=== PATIENT | female | born 1940 | race Caucasian/White ===

== ENCOUNTER 2019-01-04 23:50 | Inpatient (IN) | payer MEDICARE, SELFPAY ==
[2019-01-05] VITALS (21 sets, daily range): BP systolic 117–153; BP diastolic 61–81; PULSE 64–93; RESP 16–27; TEMP 36.4–36.9; O2SAT 4–97; BMI 24.7
--- NOTE | 2019-01-05 00:55 | NURSING ---
Addendum entered by Stephenie Curran 01/05/19 01:04: Pt unsure of date of pneumococcal shot. Original Note: Pt states she take CoQ10, unsure of dose. Takes Vitamin D3 and Lecithin, unsure of doses. Unsure of last flu shot. States she thinks this was last year.
--- NOTE | 2019-01-05 02:45 | PCM.HP.STD ---
Problem List (1) Acute on chronic respiratory failure with hypoxemia Status: Chronic History of Present Illness Date of Admission: 01/05/19 Chief Complaint: shortness of breath The patient is a 78 year old F with a past medical history of COPD, hyperlipidemia, hypertension, tobacco abuse, chronic respiratory failure with hypoxemia who was transferred from [facility] Emergency department because of progressively worsening exertional dyspnea that started 3-4 days. She has shortness of breath at rest but her shortness of breath increases markedly with exertion. At home, patient noted that her oxygen saturation was in the 70s-80s even when she cranked her home oxygen from her baseline of 3 L/min to 6 L/min. At [facility] Emergency department on her home baseline 3 L/min nasal cannula her oxygen saturation was 82% with ambulation; and when her oxygen was increased to 6L per minute her oxygen saturation was less than 88% with ambulation. Her chest x-ray at outside hospital showed basilar atelectasis; emphysema and COPD. CTPA at the outside was not remarkable for PE. Patient had no fever; no change in cough and no wheezing. She was given Solu-Medrol 125 mg and breathing treatments at the outside hospital. Her white count and troponin was unremarkable. Her BNP was 109. Her EKG showed T wave inversion in leads III that was unchanged from previous. Her creatinine was 0.78. Coronary stent was placed in 2017. And she is on dual antiplatelet therapy with aspirin and Plavix. However 2 weeks ago she ran out of her Plavix. Reportedly she calls her special education administrator office and the nurse informed that there are times that Plavix is given for 1-1/2 years. She reports that no either information was provided so she assumed that she was done taking plavix. Patient is unsure whether she still needs to take her Plavix but as stated above she has been off Plavix. Past Medical History Past Medical History (Chronic Problems): Chronic Problems (Last Reviewed 01/05/19 @ 04:23 by Cosme Turner MD) Acute on chronic respiratory failure with hypoxemia (Chronic) Pneumonia (Chronic) Atherosclerotic heart disease of [place] coronary artery without angina pectoris (Chronic) Presence of coronary angioplasty implant and graft (Chronic) Femoral bruit (Chronic) Right PFO (patent foramen ovale) (Chronic) CAD (coronary artery disease) (Chronic) COPD (chronic obstructive pulmonary disease) (Chronic) Hypertension (Chronic) Hyperlipidemia (Chronic) Tobacco abuse disorder (Chronic) Chronic respiratory failure with hypoxia (Chronic) Medical History: Medical History (Last Reviewed 01/05/19 @ 06:16 by Cosme Turner MD) Dyspnea R06.00 Allergies isosorbide Adverse Reaction (Intermediate, Verified 01/21/18 16:53) Shortness of breath Home Medications: Ambulatory Orders Medication Instructions Recorded Lisinopril [Zestril] 10 mg PO DAILY 11/11/15 Simvastatin [Zocor] 20 mg PO QHS 11/11/15 Oxygen, Home [Home Oxygen] 2 lpm NASAL DAILY PRN 12/12/15 Tiotropium [place] [Spiriva 18 MCG] 1 puff INHALATION BID 12/12/15 Albuterol Aerosols [Ventolin 2.5 mg INHALATION TID PRN 07/14/17 Aerosols] Ascorbic Acid [Vitamin C] 1,000 mg PO BID 07/14/17 Aspirin [Aspirin, Baby] 81 mg PO QHS 07/14/17 Multivitamin [Multiple Vitamins] 1 ea PO DAILY 07/14/17 clopidogrel 75 mg tablet 75 mg PO DAILY #30 tab 09/10/17 Amlodipine Besylate 5 mg PO DAILY 01/05/19 Budesonide/Formoterol 160/4.5 2 puff INHALATION BID 01/05/19 [Symbicort 160/4.5 Mcg Inhaler (SP)] Cholecalciferol (VIT D3) [Vitamin 1,000 unit PO DAILY 01/05/19 D] Metoprolol Tartrate [Lopressor 12.5 mg PO BID 01/05/19 (beta megha)] Surgical History: Surgical History (Last Reviewed 01/05/19 @ 06:16 by Cosme Turner MD) Hx of appendectomy (Resolved) Z90.49 Surgical History: - - History of craniotomy status post intracranial hemorrhage in 1998, history of hand and wrist surgeries, recent appendectemy Psychiatric History: No pertinent psych hx MANAGEMENT ARCHITECT History: No pertinent MANAGEMENT ARCHITECT history Lives: Alone Smoking Status: Former smoker - *Family History Maternal Family History: Family History (Last Reviewed 01/05/19 @ 06:16 by Cosme Turner MD) Mother CAD (coronary artery disease) Father CAD (coronary artery disease) Sister CAD (coronary artery disease) History Items: Heart Disease Paternal Family History: Family History (Last Reviewed 01/05/19 @ 06:16 by Cosme Turner MD) Mother CAD (coronary artery disease) Father CAD (coronary artery disease) Sister CAD (coronary artery disease) History Items: Heart Disease - of [place] at age 58 Sibling Family History: Family History (Last Reviewed 01/05/19 @ 06:16 by Cosme Turner MD) Mother CAD (coronary artery disease) Father CAD (coronary artery disease) Sister CAD (coronary artery disease) History Items: Stroke Review of Systems Constitutional: Denies: Chills, Fever, Weight Change HEENT: Reports: Nasal Congestion - She attributes to oxygen use.. Denies: Head Aches, Sinus Congestion, Sinus Drainage Cardiovascular: Denies: Chest Pain, Palpitations Respiratory: Reports: Shortness of Breath. Denies: Cough, Sputum production Gastrointestinal: Denies: Abdominal Pain, Nausea, Vomiting Genitourinary: Denies: Dysuria Musculoskeletal: Denies: Joint Pain, Joint Tenderness Skin: Denies: Rash, Wounds Neurological: Denies: Numbness, Tingling, Focal weakness Psychiatric: Denies: Anxiety, Depression, Homicidal Ideations, Suicidal Ideations Hematologic/ Lymphatic: Denies: Easy Bruising, Easy Bleeding VTE Information - Inpt Only VTE Present on Admission: No VTE Mechan Device Prophylaxis: None VTE Pharm Prophylaxis ordered?: Yes - Physical Exam General: Alert, Oriented x3, Cooperative HEENT: Atraumatic, PERRLA, EOMI, Normocephalic Neck: Supple, No JVD, Negative Carotid Bruits Lungs: Diminished, Tachypneic Cardiovascular: Regular rate, No murmurs Abdomen: Bowel Sounds Present, Soft, Non Tender Extremities: No edema, Capillary Refill Less than 3 Seconds Skin: No rashes, No breakdown Musculoskeletal: No Tenderness to Palpation of Joints or Extremities Neurological: Neuro grossly intact Psych/Mental Status: Normal Affect, Appropriate Vital Signs Temp Pulse Resp BP Pulse Ox 98.1 F 83 23 H 127/70 H 94 01/05/19 01:26 01/05/19 01:26 01/05/19 01:26 01/05/19 01:26 01/05/19 01:26 Oxygen Flow Rate (L/min) 6 Oxygen Delivery Method Nasal Cannula Weight: 63.3 kg Body Mass Index (BMI) 24.7 Finger Stick Blood Glucose 186 Laboratory Tests Past 24 Hrs 01/05/19 01:50 Troponin I Pending Assessment/Plan All Active Problems (Last Reviewed 01/05/19 @ 04:23 by Cosme Turner MD) Hx of appendectomy (Resolved) Post PTCA (Resolved) Ventricular septal aneurysm (Ruled-out) Acute respiratory failure with hypoxemia (Acute) COPD exacerbation (Acute) Angina pectoris (Acute) C. difficile colitis (Resolved) SBO (small bowel obstruction) (Resolved) The patient is a 78 year old F with a past medical history of COPD, hyperlipidemia, hypertension, tobacco abuse, chronic respiratory failure with hypoxemia who was transferred from [facility] Emergency department because of progressively worsening exertional dyspnea and with hypoxemia above her baseline in the setting of being off Plavix for about 2 weeks consistent with acute on chronic hypoxemic respiratory failure. Acute on chronic hypoxemic respiratory failure Patient with oxygen saturation in 70s-80s even when she cranked her home oxygen from her baseline of 3 L/min to 6 L/min. At [facility] Emergency department on her home baseline 3 L/min nasal cannula her oxygen saturation was 82% with ambulation; and when her oxygen was increased to 6L per minute her oxygen saturation was less than 88% with ambulation. Notably patient denies wheezing; or cough We will get a comprehensive respiratory pathogen panel. We will get a dobutamine echo to assess for ischemia/infarct We will restart patient on Plavix while inpatient. Received telemetry 125 mg and breathing treatment at emergency department. We will continue patient on Solu-Medrol 40 mg daily. We will scheduled DuoNeb and as needed albuterol. Consider discussing with Dr. Reed if patient still needs Plavix if her dobutamine echo is unremarkable. CBC and BMP ordered Hypertension On presentation her blood pressure was within goal Metoprolol and lisinopril continued Amlodipine continued Trend blood pressure and adjust blood pressure medications. History of CAD Aspirin continued Resume Plavix as above Vitamin D deficiency Vitamin D continued DVT Prophylaxis Subcutaneous Lovenox ordered Code Visit OBSV E&M: 57488 Initial observation care L3
[2019-01-05 05:20] LABS: International Normalized Ratio 1.1; Prothrombin Time (Protime)PT. 13.6 SECONDS (11.7-14.9)
[2019-01-05 05:21] LABS: Absolute Lymphocyte Count 0.59 X10^3/ul (0.83-4.51); Absolute Neutrophil Count 4.8 X10^3/uL (2.0-7.7); Basophil# 0.01 X10^3/uL; Basophil% 0.2 % (0-1); Hemoglobin 9.8 g/dl (12.0-15.0); Lymphocyte # 0.59 X10^3/ul (4.0); Lymphocyte % 10.8 % (19-41); Mean Corp Hgb Conc 31.6 g/gl (32-36); Mean Corpuscular Volume 88.6 fL (81-99); Mean Platelet Vol. 9.5 fl (6.2-12.0); Monocyte# 0.06 X10^3/uL; Monocyte% 1.1 % (0-10); Neutrophil # 4.77 X10^3/uL (2.7-7.7); Neutrophil % 87.7 % (47-70); Platelet Count 246 K/mm3 (150-450); RBC Distribution Width CV 12.7 % (11.6-14.6); RBC Distribution Width SD 39.8 fl (35.1-43.9); White Blood Count 5.4 K/mm3 (4.4-11.0)
[2019-01-05 05:26] LABS: POSITIVE COUNT NO; POSITIVE MORPHOLOGY NO
[2019-01-05 05:37] LABS: Partial Thromboplast Time 28.5 Seconds (24.1-36.2)
[2019-01-05 05:54] LABS: Anion Gap 3 (5-15); BUN 12 mg/dL (7-18); BUN/Creat Ratio 16.6 RATIO (10-20); Calcium,Total 9.5 mg/dL (8.5-10.1); Chloride 106 mmol/L (98-107); Creatinine, Serum 0.72 mg/dL (0.55-1.02); EST Glomerular Filtration Rate 83 mL/min (>60); Est Glom Filt Rate - Afr Amer 100 mL/min (>60); Estimated Creatinine Clearance 38.35 ml/min; Glucose 181 mg/dL (74-106); Potassium 4.7 mmol/L (3.5-5.1); Sodium Level 138 mmol/L (136-145)
--- NOTE | 2019-01-05 05:55 | EKG12_ITS ---
Test Reason : Blood Pressure : / mmHG Vent. Rate : 068 BPM Atrial Rate : 068 BPM P-R Int : 162 ms QRS Dur : 082 ms QT Int : 400 ms P-R-T Axes : 000 -14 006 degrees QTc Int : 425 ms Sinus rhythm with Premature atrial complexes Septal infarct (cited on or before 19-JUL-2017) Inferior infarct , age undetermined Abnormal ECG Confirmed by MANJINDER ONEILL, RENEA ([id number]), clinical editor DAVID HATCH ([id number]) on 01/06/2019 9:46:10 AM Referred By: Cosme Turner Confirmed By:RENEA DUNBAR MD
[2019-01-05 06:00] LABS: Differential Indicated SCAN CRITERIA MET; POSITIVE DIFFERENTIAL YES
[2019-01-05 06:01] LABS: Differential Comment SCANNED
[2019-01-05] MEDS: Lisinopril 10 MG Tablet PO (06:22)
[2019-01-05] MEDS: Clopidogrel Bisulfate 75 MG Tablet PO (06:22)
[2019-01-05] MEDS: Aspirin 81 MG TAB.CHEW PO (06:22)
[2019-01-05] MEDS: 0.9% NaCl Peripheral Flush Adult/Peds IV (06:23)
[2019-01-05] MEDS: Ipratropium/Albuterol Sulfate 3 ML AMPUL.NEB INHALATION (07:20)
--- NOTE | 2019-01-05 07:52 | PCM.PN.BLA ---
Progress Note Patient seen and examined. She was admitted because of worsening shortness of breath and dry cough of 3-4 days duration. She denies any chest pain. She denies fever or chills. She does have a history of COPD and advanced emphysema, has been on home oxygen at 3.5 L. Her EKG revealed no acute ischemic changes. Troponin is negative. Chest x-ray that was done at the outside facility showed no acute findings, revealed signs of hyperinflation consistent with COPD and advanced emphysema. CTA chest showed no PE or dissection, revealed advanced emphysema. Today, patient is feeling better than yesterday. At this time, she is on 3 L of oxygen. Repeat CBC and BMP from today was remarkable for chronic anemia, otherwise normal. Troponin is negative, second troponin is pending. Stress echocardiogram ordered. Her symptoms likely due to acute exacerbation of COPD with acute on chronic hypoxic respiratory failure. She is on bronchodilators and IV steroids. Peripheral vascular negative. Plan: Increase IV site Medrol to 40 mg every 8 hours, continue other treatments, plan for stress echo today that was ordered by the admitting physician.
--- NOTE | 2019-01-05 07:55 | PN_ITS ---
Progress Note Patient seen and examined. She was admitted because of worsening shortness of breath and dry cough of 3-4 days duration. She denies any chest pain. She denies fever or chills. She does have a history of COPD and advanced emphysema, has been on home oxygen at 3.5 L. Her EKG revealed no acute ischemic changes. Troponin is negative. Chest x-ray that was done at the outside facility showed no acute findings, revealed signs of hyperinflation consistent with COPD and advanced emphysema. CTA chest showed no PE or dissection, revealed advanced emphysema. Today, patient is feeling better than yesterday. At this time, she is on 3 L of oxygen. Repeat CBC and BMP from today was remarkable for chronic anemia, otherwise normal. Troponin is negative, second troponin is pending. Stress echocardiogram ordered. Her symptoms likely due to acute exacerbation of COPD with acute on chronic hypoxic respiratory failure. She is on bronchodil ators and IV steroids. Peripheral vascular negative. Plan: Increase IV site Medrol to 40 mg every 8 hours, continue other treatments, plan for stress echo today that was ordered by the admitting physician.
--- NOTE | 2019-01-05 11:00 | STE_ITS ---
Reason For Study: Dyspnea/SOB Stress Results Protocol: Dobutamine Stress Echo Maximum Predicted HR: 142 bpm Target HR: 121 bpm % Maximum Predicted HR: 89 % DurationHeart Rate Stage (mm:ss) (bpm) BP Comment Baseline 79 138/75No Chest Pain; Home O2 at 3L NC DSE 10 MCG 3:11 77 105/44No Chest Pain DSE 20 MCG 3:00 109 103/49No Chest Pain DSE 30 MCG 2:40 126 107/48No Chest Pain Recovery 97 114/63No Chest Pain Stress Duration: 8:51 mm:ss Maximum Stress HR: 126 bpm METS: 1 Baseline Echocardiogram Findings The estimated ejection fraction is 65 %. Stress Echo Wall motion Data Resting WM Intermediate WM Stress WM Resting Wall Motion Wall Motion Stress No regional wall motion No regional wall motion abnormalities noted. abnormalities noted. EKG Data Normal intervals are noted. The patient was titrated from 10 mcg to a maximun of 30 mcg of dobutamine during the stress. The maximum heart rate attained was 126 beats per minute. This was 88% of maximum predicted heart rate. During dobutamine infusion, there were no ST or T wave changes noted to suggest ischemia. No clinical angina was noted. Interpretation Summary The estimated ejection fraction is 65 %. Normal, adequate, dobutamine echocardiogram. Negative for ischemia by EKG and echocardiographic criteria. No anginal symptoms noted. Appropriate blood pressure response to dobutamine. Rare PVC noted. Final LVEF is 75%. Test terminated due to the attainment of target heart rate. Ordering Physician: Cosme Turner Referring Physician: Sj Hwang Performed By: Corey Flores RCS
[2019-01-05] MEDS: Metoprolol Tartrate 25 MG Tablet 12.5 MG PO ×2 (11:58→21:03)
[2019-01-05] MEDS: Multivitamins,Therapeutic Tablet 1 TABLET PO (11:58)
[2019-01-05] MEDS: Ascorbic Acid 500 MG Tablet 1000 MG PO ×2 (11:59→21:04)
[2019-01-05] MEDS: amLODIPine 5 MG Tablet PO (11:59)
[2019-01-05] MEDS: Albuterol 2.5 MG/3 ML VIAL.NEB. INHALATION ×2 (13:18→19:08)
[2019-01-05] MEDS: Atorvastatin Calcium 10 MG Tablet PO ×2 (21:03)
[2019-01-06] VITALS (18 sets, daily range): BP systolic 126–144; BP diastolic 63–78; PULSE 64–100; RESP 14–28; TEMP 36.4–36.9; O2SAT 87–100
--- NOTE | 2019-01-06 01:44 | NURSING ---
CPS NOTIFIED OF PT'S REQUEST FOR BREATHING TX.
[2019-01-06] MEDS: Albuterol 2.5 MG/3 ML VIAL.NEB. INHALATION ×3 (01:47→15:10)
[2019-01-06] MEDS: 0.9% NaCl Peripheral Flush Adult/Peds IV ×2 (05:58→21:41)
--- NOTE | 2019-01-06 07:20 | RAD_ITS ---
STUDY: X-RAY CHEST REASON FOR EXAM: Female, 78 years old. Shortness of breath/dyspnea. TECHNIQUE: Single AP portable view of the chest. COMPARISON: Comparison is made with prior examination dated July 14, 2017. FINDINGS: EKG electrodes are seen. Hyperinflation. The lungs are clear. There is no demonstrated pleural abnormality. There is moderate cardiac enlargement. Normal mediastinum and lona. Normal visualized pulmonary arteries. There is atherosclerotic calcification of the aortic arch with tortuosity. Normal visualized thoracic spine. Normal visualized ribs, clavicles, and shoulders. Hiatal hernia. RAD/Chest 1 View (Portable) IMPRESSION: Cardiomegaly. Hiatal hernia. No acute abnormality is seen. Electronically Signed: Joseluis Blancas, at 10:13 EDT , Service support ,
[2019-01-06] MEDS: levoFLOXacin 500 MG Tablet PO (08:31)
[2019-01-06] MEDS: Metoprolol Tartrate 25 MG Tablet 12.5 MG PO ×2 (08:31→21:37)
[2019-01-06] MEDS: Enoxaparin 40 MG/0.4 ML Syringe SC (08:32)
[2019-01-06] MEDS: amLODIPine 5 MG Tablet PO (08:32)
[2019-01-06] MEDS: Clopidogrel Bisulfate 75 MG Tablet PO (08:33)
[2019-01-06] MEDS: Ascorbic Acid 500 MG Tablet 1000 MG PO ×2 (08:33→21:39)
[2019-01-06] MEDS: Lisinopril 10 MG Tablet PO (08:34)
[2019-01-06] MEDS: Multivitamins,Therapeutic Tablet 1 TABLET PO (08:40)
--- NOTE | 2019-01-06 11:22 | PN_ITS ---
Subjective: Chief complaint: Follow-up after admission for acute COPD exacerbation with acute on chronic hypoxic respiratory failure. Patient seen and examined. No acute events overnight. Her symptoms slightly improved but still requiring up to 4 L of oxygen. She denies any cough or sputum production today. She walked to the bathroom and her pulse ox went down to 79% and she was tachycardic. Her other vital signs are stable, pulse ox is 97% on 4 L. - Physical Exam General: Alert, Oriented x3, Cooperative, No apparent distress, - HEENT: Atraumatic, PERRLA, EOMI, Normocephalic Oral: Moist Mucosa, No Gingival or Mucosal Lesions/ Ulcerations Neck: Supple, No JVD, Negative Carotid Bruits, Trachea Midline, Thyroid Normal Size and Texture Lungs: No rales, Diminished, Short of Breath, Wheezes, - - Decreased sounds bilateral, bilateral faint wheezes. Cardiovascular: Regular rate, Regular Rhythm, Normal S1, Normal S2, PMI Normal Abdomen: Bowel Sounds Present, Soft, Non Tender, Non-Distended, No Hepato- splenomegaly Extremities: No clubbing, No cyanosis, No edema Skin: No rashes, No breakdown Lymphatic: No Cervical, Supraclavicular, or Inguinal Adenopathy Neurological: Cranial nerves II-XII grossly intact, Neuro grossly intact Psych/Mental Status: Normal Affect, Appropriate, Alert and oriented to time, place, person, mood and affect Vital Signs Temp Pulse Resp BP Pulse Ox 97.8 F 92 16 138/63 H 97 01/06/19 05:59 01/06/19 08:31 01/06/19 07:35 01/06/19 05:59 01/06/19 07:35 Oxygen Flow Rate (L/min) 4 Oxygen Delivery Method Nasal Cannula Weight: 139 lb 8.842 oz Body Mass Index (BMI) 24.7 Finger Stick Blood Glucose 186 Intake and Output for Last 24 Hours 01/04/19 01/05/19 01/06/19 23:59 23:59 23:59 Intake Total 1240 / 1240 240 / 240 Balance 1240 / 1240 240 / 240 Microbiology Past 72 Hours 01/05/19 03:10 Respiratory Panel (PCR) - Final Mucosa - Nasopharyngeal Clinical Impression(s) from Imaging Studies Chest X-Ray 01/06/19 07:20 IMPRESSION: Cardiomegaly. Hiatal hernia. No acute abnormality is seen. Electronically Signed: Joseluis Blancas, at 10:13 EDT , Service support , Medical Necessity - Tobacco Use Smoking Status: Former smoker Assessment/Plan This is a 78 years old female patient presented to the emergency room because of progressively worsening shortness of breath with hypoxia on pulse oximeter as well as dry cough and she was found to have acute COPD exacerbation complicated by acute on chronic hypoxic respiratory failure. #1 acute COPD exacerbation: She is on bronchodilators and IV steroids. She reported minimal improvement of her symptoms. According to nursing staff, patient walked to the bathroom this morning and she became more short of breath, pulse ox dropped down to 79% on 4 L and she was tachycardic. Repeat chest x-ray showed no new findings. Respiratory panel for viruses were negative. Plan: Restart DuoNeb, change albuterol as needed, start p.o. Levaquin, start Robitussin-AC as needed, encourage incentive spirometer, ambulate. #2 acute on chronic hypoxic respiratory failure: Secondary to COPD exacerbation. Patient has been on oxygen at home at 3.5 L. At this time, she is on 4 L. Plan to treat as above. #3 CAD status post PTCA: Stable, no acute issues. Cardiac enzymes are negative. EKG revealed no acute ischemic changes. Stress echocardiogram performed and was negative for ischemia by EKG and echocardiographic criteria, EF was 75%. She is on aspirin, statins, Plavix, metoprolol and lisinopril. #4 hypertension: Blood pressure stable, continue Norvasc, metoprolol and lisinopril. #5 hyperlipidemia: Continue statins. #6 chronic anemia: Hemoglobin stable, no indication for transfusion. No evidence of active bleeding. #7 DVT prophylaxis: Subcu Lovenox. This note was generated with [employer] dictation software. It may contain incorrect words, spelling, and punctuation that were not noted in checking the note before signing. Code Visit Inpatient E&M: 56076 Subs Hosp L2
--- NOTE | 2019-01-06 15:49 | CASEMGMT ---
RN HUGO BIOTECHNOLOGIST CM to room to meet with patient for initial transition planning/care coordination assessment. VIPUL ARIAS introduced self and role at [facility]. Pt voices understanding and consents to assessment at this time. Pt resting in bed in no distress at this time. Pt is A/O at this time and answers all questions appropriately. Care providers, pharmacy, and demographics verified/updated at this time. PCP: [facility] Specialists: denies Preferred Pharmacy: [facility] Insurance: [facility] Prescription Benefit: Yes Living Will/HPOA: has a LW but does not have HCPOA . Interested in more information but does not want to talk with SW at this time to complete paperwork. Provided information on advanced directives and given Social Service rac card with number to call if chooses in the future to utilize [facility] social work for advanced directive completion. Educated patient that, if patient so chooses, can come back to [facility] and meet with a SW as an outpatient to complete health care advanced directives. Patient expresses understanding. LNOK: Sister, Shanell, who lives in [place]. Living Arrangements: Lives alone in one-story home w/2 steps to enter. is independent with personal ADL's. Has a friend, Sarah, who helps her with yardwork and grocery shopping. Friend, Jenniffer, is also supportive. Transportation: Pt states drives self and states no transportation concerns at this time. Friend, Sarah, is able to drive her home on d/c. DME: has the following DME: has grab bar in the bathroom, nebulizer,and O2 @ home thru [employer]. has both concentrator and portable tanks. Pt states she wears O2 @ 3.5 L/M. Call placed to [employer]. They state pt's current order for O2 is for only 2 L/M via n/c @ HS and with exertion. Pt states no need for further DME at this time. HHC/SNF: Has been @ [facility] after surgery in the past. No hx of HHC and denies needs. Pt wishes to return home and states has no concerns with going home at time of discharge. CM to follow for home oxygen needs and any further discharge planning/needs. Pt voices no further concerns/needs at this time. Advised pt to ask for CM if any further questions/concerns/needs arise. Voices understanding. PLAN: Home. Follow for Increased home O2 needs. (Pt has O2 @ 2 L/M @ home @ HS and w/exertion thru [employer]). Pt is going to ask friend, Sarah, to bring in portable tank to have for discharge. Roc PRAJAPATIN RN CM
[2019-01-06] MEDS: Ipratropium/Albuterol Sulfate 3 ML AMPUL.NEB INHALATION ×2 (18:34→23:01)
[2019-01-06] MEDS: Aspirin 81 MG TAB.CHEW PO (21:37)
[2019-01-07] VITALS (7 sets, daily range): BP systolic 134–145; BP diastolic 66–78; PULSE 59–88; RESP 16–20; TEMP 36.6–36.7; O2SAT 94–97
[2019-01-07] MEDS: Ipratropium/Albuterol Sulfate 3 ML AMPUL.NEB INHALATION ×3 (02:44→10:34)
[2019-01-07] MEDS: levoFLOXacin 500 MG Tablet PO (06:58)
[2019-01-07] MEDS: 0.9% NaCl Peripheral Flush Adult/Peds IV ×2 (06:59→07:43)
[2019-01-07] MEDS: Multivitamins,Therapeutic Tablet 1 TABLET PO (09:08)
[2019-01-07] MEDS: amLODIPine 5 MG Tablet PO (09:09)
[2019-01-07] MEDS: Metoprolol Tartrate 25 MG Tablet 12.5 MG PO (09:09)
[2019-01-07] MEDS: Enoxaparin 40 MG/0.4 ML Syringe SC (09:09)
[2019-01-07] MEDS: Lisinopril 10 MG Tablet PO (09:10)
[2019-01-07] MEDS: Clopidogrel Bisulfate 75 MG Tablet PO (09:10)
[2019-01-07] MEDS: Ascorbic Acid 500 MG Tablet 1000 MG PO (09:10)
--- NOTE | 2019-01-07 12:10 | PCM.DC ---
You will use the following diet at home:: Cardiac Your food should be the consistency of: Regular Discharge Activity: Return to Normal Activity Weight Bearing Status: Weight bearing as tolerated Call your doctor if you observe: Fever of 101 or Higher, Shortness of breath, Dizziness, Fainting spells, Chest pain, Increased palpitations (irregular heartbeat), Uncontrolled pain Additional Instructions: You can go up to 5-6 L of oxygen with activity and take it down to 3.5-4 at rest. Allergies/Adverse Reactions: Allergies isosorbide Adverse Reaction (Intermediate, Verified 01/21/18 16:53) Shortness of breath Medications to take at Discharge Lisinopril [Zestril] 10 mg PO DAILY 11/11/15 Simvastatin [Zocor] 20 mg PO QHS 11/11/15 Oxygen, Home [Home Oxygen] 2 lpm NASAL DAILY PRN 12/12/15 Tiotropium [place] [Spiriva 18 MCG] 1 puff INHALATION BID 12/12/15 Albuterol Aerosols [Ventolin Aerosols] 2.5 mg INHALATION TID PRN 07/14/17 Ascorbic Acid [Vitamin C] 1,000 mg PO BID 07/14/17 Aspirin [Aspirin, Baby] 81 mg PO QHS 07/14/17 Multivitamin [Multiple Vitamins] 1 ea PO DAILY 07/14/17 clopidogrel 75 mg tablet 75 mg PO DAILY #30 tab 09/10/17 Amlodipine Besylate 5 mg PO DAILY 01/05/19 Budesonide/Formoterol 160/4.5 [Symbicort 160/4.5 Mcg Inhaler (SP)] 2 puff INHALATION BID 01/05/19 Cholecalciferol (VIT D3) [Vitamin D3] 1,000 unit PO DAILY 01/05/19 Metoprolol Tartrate [Lopressor (beta megha)] 12.5 mg PO BID 01/05/19 Prednisone 40 mg PO DAILY #30 tablet 01/07/19 levoFLOXacin tablet [Levaquin tablet] 500 mg PO DAILY@0600 #5 tablet 01/07/19 The following prescriptions were given: levoFLOXacin tablet [Levaquin tablet] 500 mg PO DAILY@0600 #5 tablet Prednisone 40 mg PO DAILY #30 tablet Primary Care Physician: [facility] Doctor,Out of [Primary Care Provider] - Please follow up with your Primary Care Physician in: 1 week. Test Results: Test results from this visit will be discussed in further detail at your follow-up appointment, if applicable.
--- NOTE | 2019-01-07 12:45 | CASEMGMT ---
Per [employer], pt's order for home oxygen is 2 liters at bedtime and with exertion. New testing faxed with new order for 3 liters at rest and 6 liters on exertion to [employer] at this time. Call to Is[facility] to update on all at this time, voices understanding. Paco MATTHEW CM
--- NOTE | 2019-01-07 15:04 | PCM.DC.SUM ---
Discharge Date and Diagnosis Date of Admission: 01/05/19 Date of Discharge: 01/07/19 - Primary Discharge Diagnosis #1 acute COPD exacerbation. #2 acute on chronic hypoxic respiratory failure. - Secondary Discharge Diagnosis Chronic Problems (Last Reviewed 01/05/19 @ 06:16 by Cosme Turner MD) Post PTCA (Chronic) Atherosclerotic heart disease of [place] coronary artery without angina pectoris (Chronic) Presence of coronary angioplasty implant and graft (Chronic) PFO (patent foramen ovale) (Chronic) CAD (coronary artery disease) (Chronic) COPD (chronic obstructive pulmonary disease) (Chronic) Hypertension (Chronic) Hyperlipidemia (Chronic) Tobacco abuse disorder (Chronic) Chronic respiratory failure with hypoxia (Chronic) Hospital Course and Treatment Imaging Results: Clinical Impression(s) from Imaging Studies Chest X-Ray 01/06/19 07:20 IMPRESSION: Cardiomegaly. Hiatal hernia. No acute abnormality is seen. Electronically Signed: Joseluis Russellnaveen, at 10:13 EDT , Service support , Operations: None Procedures: None Summary of Care Provided: Patient seen and examined on the day of discharge and appeared to be stable to be discharged home. She continued to improve slowly, has been able to ambulate and her pulse ox dropped to high 80s upon ambulation but came up to more than 92 by rest. Her other vital signs were stable. The patient is a 78 year old F admitted because of progressively worsening shortness of breath, dry cough and hypoxia on pulse oximeter at home as well as dry cough and she was found to have acute COPD exacerbation complicated by acute on chronic hypoxic respiratory failure. A chest x-ray was done twice on admission and 3 days later and showed no evidence of infiltrate or consolidation, pneumonia ruled out. Her EKG revealed no acute ischemic changes. Her cardiac enzymes were negative. She underwent stress echocardiogram that was negative for ischemia by EKG and echocardiographic criteria with ejection fraction of 75%. Patient was treated with IV steroids, bronchodilators and oral antibiotics. Initially, patient reported no improvement and she continued to drop her pulse ox upon ambulation which was down up to high 70s and she was tachycardic. With above-mentioned treatment, patient symptoms improved and she was able to ambulate without significant drop of her pulse oximeter and large tachycardia. Patient was on 3.5 L of oxygen at home and during this admission, she required up to 6 L with activity and ambulation but at rest, she has been on 3.5-4 L. Patient discharged home in a stable medical condition, discharged on tapering course of prednisone, discharged on Levaquin for 5 days, instructed to go up on oxygen up to 6 L with ambulation, recommended from with PCP in 1 week. - Physical Exam General: Alert, Oriented x3, Cooperative, No apparent distress HEENT: Atraumatic, PERRLA, EOMI, Normocephalic Oral: Moist Mucosa, No Gingival or Mucosal Lesions/ Ulcerations Neck: Supple, No JVD, Negative Carotid Bruits, Trachea Midline, Thyroid Normal Size and Texture Lungs: Clear to auscultation, No rhonchi, No wheeze, No rales, Diminished Cardiovascular: Regular rate, Regular Rhythm, Normal S1, Normal S2, PMI Normal Abdomen: Bowel Sounds Present, Soft, Non Tender, Non-Distended, No Hepato-splenomegaly Extremities: No clubbing, No cyanosis, No edema Skin: No rashes, No breakdown Lymphatic: No Cervical, Supraclavicular, or Inguinal Adenopathy Neurological: Cranial nerves II-XII grossly intact, Neuro grossly intact Psych/Mental Status: Normal Affect, Appropriate Vital Signs Temp Pulse Resp BP Pulse Ox 98.1 F 80 16 134/78 H 95 01/07/19 09:50 01/07/19 10:34 01/07/19 10:34 01/07/19 09:50 01/07/19 09:50 Oxygen Flow Rate (L/min) [ 6 AMBULATION with Oxygen] Oxygen Flow Rate (L/min) [ 3 AMBULATING on Room Air] Oxygen Flow Rate (L/min) [At 3 REST on Room Air] Oxygen Flow Rate (L/min) 3 Oxygen Delivery Method Nasal Cannula Weight: 139 lb 8.842 oz Body Mass Index (BMI) 24.7 Finger Stick Blood Glucose 186 Intake and Output for Last 24 Hours 01/05/19 01/06/19 01/07/19 23:59 23:59 23:59 Intake Total 1240 / 1240 960 / 960 840 / 840 Balance 1240 / 1240 960 / 960 840 / 840 Microbiology Past 72 Hours 01/05/19 03:10 Respiratory Panel (PCR) - Final Mucosa - Nasopharyngeal Discharge Activity: Return to Normal Activity Weight Bearing Status: Weight bearing as tolerated Call your doctor if you observe: Fever of 101 or Higher, Shortness of breath, Dizziness, Fainting spells, Chest pain, Increased palpitations (irregular heartbeat), Uncontrolled pain Home Medications: Medications to take at Discharge Lisinopril [Zestril] 10 mg PO DAILY 11/11/15 Simvastatin [Zocor] 20 mg PO QHS 11/11/15 Oxygen, Home [Home Oxygen] 2 lpm NASAL DAILY PRN 12/12/15 Tiotropium [place] [Spiriva 18 MCG] 1 puff INHALATION BID 12/12/15 Albuterol Aerosols [Ventolin Aerosols] 2.5 mg INHALATION TID PRN 07/14/17 Ascorbic Acid [Vitamin C] 1,000 mg PO BID 07/14/17 Aspirin [Aspirin, Baby] 81 mg PO QHS 07/14/17 Multivitamin [Multiple Vitamins] 1 ea PO DAILY 07/14/17 clopidogrel 75 mg tablet 75 mg PO DAILY #30 tab 09/10/17 Amlodipine Besylate 5 mg PO DAILY 01/05/19 Budesonide/Formoterol 160/4.5 [Symbicort 160/4.5 Mcg Inhaler (SP)] 2 puff INHALATION BID 01/05/19 Cholecalciferol (VIT D3) [Vitamin D3] 1,000 unit PO DAILY 01/05/19 Metoprolol Tartrate [Lopressor (beta megha)] 12.5 mg PO BID 01/05/19 Prednisone 40 mg PO DAILY #30 tablet 01/07/19 levoFLOXacin tablet [Levaquin tablet] 500 mg PO DAILY@0600 #5 tablet 01/07/19 Following Prescrptions Were Given to Patient: levoFLOXacin tablet [Levaquin tablet] 500 mg PO DAILY@0600 #5 tablet Prednisone 40 mg PO DAILY #30 tablet Primary Care Physician: Ameya Alvarez,Out of [Primary Care Provider] - Please follow up with your Primary Care Physician in: 1 week. Disposition: Home Minutes spent on discharge:: 32 Patient Condition:: Stable Medical Necessity - Tobacco Use Smoking Status: Former smoker Meaningful Use Info Meaningful Use Diagnoses (Choose all that apply): None applicable Code Visit Inpatient E&M: 08213 Disch Hosp
== END 2019-01-07 17:17 | disposition home or self-care (01) | DRG 189 ==
PROVIDERS: Admitting Provider Hospitalist; Referring Provider Hospitalist; Visit Provider Hospitalist
DX: J96.21 Acute and chronic respiratory failure with hypoxia (principal); J44.1 Chronic obstructive pulmonary disease with (acute) exacerbation; Q21.1 Atrial septal defect; Z99.81 Dependence on supplemental oxygen; Z79.02 Long term (current) use of antithrombotics/antiplatelets; Z79.82 Long term (current) use of aspirin; I25.10 Atherosclerotic heart disease of native coronary artery without angina pectoris; Z95.5 Presence of coronary angioplasty implant and graft; I10 Essential (primary) hypertension; E55.9 Vitamin D deficiency, unspecified; Z87.891 Personal history of nicotine dependence; E78.5 Hyperlipidemia, unspecified; D64.9 Anemia, unspecified
CPT/HCPCS: 36415; 71045; 80048; 84484; 85025; 85610; 85730; 87633; 93005; 93017; 93350; 94640; 94667; 94668; 97162; 97165; 97530; 97802; J7040; A4216

== ENCOUNTER 2019-03-24 20:09 | Emergency (ER) | payer MEDICARE, SELFPAY ==
[2019-01-05 00:31] VITALS: BMI 24.7
[2019-03-24 20:11] VITALS: BP 142/70; PULSE 81; RESP 30; TEMP 36.8; O2SAT 96; BMI 24.5
--- NOTE | 2019-03-24 20:49 | ED.DCSUM_ITS ---
- ER Visit Summary Date of Service: 03/24/19 Chief Complaint: Chest pain History of Present Illness: The patient is a 79 F who states that approximately 5 to 6 days ago she began to have a little bit of discomfort in the anterior chest wall and in the back. She went to [facility] the emergency department th inking that it was probably her pleurisy was told it was not but she was discharged. She states the back pain is continued to worsen now her chest pain is worse when she moves and when she touches it. She describes it as sharp and shooting pain. Despite the symptoms she is more upset by the fact that she does not feel she has enough area to take a deep breath and blow out her nose. She is on 3-1/2 L of nasal cannula of oxygen. The patient sees Dr. Saray howe but has not been there for 6 months. Physical Examination: Afebrile vital signs stable Gen: Well-nourished well-developed Head: Normocephalic atraumatic Eyes: Perrl EOMI ENT: TMs clear no rhinorrhea moist mucous membranes Neck: Supple no lymphadenopathy no JVD nontender CVS: Regular rate rhythm no murmurs normal S1-S2 Respiratory: No distress clear to auscultation bilaterally the anterior chest as well as the lower ribs particularly on the left are tender and the associated ribs in the back are tender. I can reproduce them by having her move and take a deep breath and by palpation. Abdomen: Soft nontender nondistended normal bowel sounds no masses Back: Nontender Extremity: Nontender no edema Skin: Normal color no rash Neuro: alert orientated ?3 CN II-XII intact normal strength sensation Psych: Normal affect normal mood Test Results: EKG shows a sinus rhythm at a rate of 82. This was later repeated in her course because she complained of chest pain to nursing and repeat EKG was ordered. Chest x-ray was also negative. Emergency Department Course and Treatment: She just had a complete cardiac evaluation approximately 3 days ago. Her symptoms are reproducible. I think this is most likely musculoskeletal in nature. On the right for her to have a few [place] because she does not want to take any Motrin or Aleve because she is on Plavix. She tells me that she is also taken some prednisone for her pleurisy and wonders if that will help. I will write for short burst of prednisone. Impression: Chest wall pain This note was generated with [employer] dictation software. It may contain incorrect words, spelling, and punctuation that were not noted in review of the chart prior to signing ED Disposition - Plan for ED Patient: Disposition: Home or Assisted Living Instructions: CHEST WALL PAIN, Costochondritis Prescriptions: Prednisone [Deltasone] 40 mg PO DAILY #8 tab Prescription Printed Hydrocodone Bitart/Apap 5-325 [[place] 5MG-325MG] 1 tab PO Q6H PRN PRN 3 Days #10 tab PRN Reason: Pain Prescription Printed Referrals: [facility] Doctor,Out of [Primary Care Provider] - Additional Instructions: Please follow-up with your doctor in 3 to 5 days
--- NOTE | 2019-03-24 20:56 | ED.RN ---
[facility] CALLED AND NOTIFIED ABOUT WRONG MEDICATION CALLED IN AT THIS TIME. METROPOLOL 25 MG. MEDICATION TO BE DISCONTINUED
[2019-03-24 22:00] VITALS: BP 150/86; PULSE 89; RESP 27; O2SAT 94
--- NOTE | 2019-03-24 22:02 | ED.RN ---
RN HAD GLASSIE CALL FOR ANOTHER EKG DUE TO PATIENT STATING HER CHEST PAIN RETURNING. RT IN ROOM COMPLETING AN EKG RIGHT NOW
--- NOTE | 2019-03-24 22:04 | EKG12_ITS ---
Test Reason : ARRHYTHMIA Blood Pressure : / mmHG Vent. Rate : 085 BPM Atrial Rate : 085 BPM P-R Int : 120 ms QRS Dur : 078 ms QT Int : 354 ms P-R-T Axes : 072 005 054 degrees QTc Int : 421 ms Normal sinus rhythm with sinus arrhythmia Low voltage QRS Confirmed by MALENA ONEILL, ALANNA ([id number]), desk editor DAVID HATCH ([id number]) on 03/29/2019 3:37:47 PM Referred By: SIMBA Confirmed By:ALANNA GUY MD
--- NOTE | 2019-03-24 22:17 | RAD_ITS ---
STUDY: X-RAY CHEST REASON FOR EXAM: Female, 79 years old. Shortness of breath 2-3 days ago, seen in [place] ED. Epigastric pain and back pain since then. TECHNIQUE: PA and lateral views of the chest. COMPARISON: January 06, 2019. 07/14/2017 PA and lateral view. FINDINGS: There are superimposed monitor leads. There is stable hyperinflation of the lungs consistent with chronic obstructive lung disease (COPD). Stable scarring in the right greater than left base. There is no demonstrated pleural abnormality. Normal size heart. Normal mediastinum and lona. Normal visualized pulmonary arteries. There is atherosclerotic calcification of the aortic arch with tortuosity. There is an increased kyphosis of the thoracic spine. Osteoporosis. Stable loss of vertebral body height level T5-T6, L1, probable Schmorl's node at L3. There is loss of vertebral body height level T3, not seen on previous exam. There is stable mild kyphosis. Normal visualized ribs, clavicles, and shoulders. There is no demonstrated abnormality of the visualized soft tissue structures of the upper abdomen. RAD/Chest PA and Lateral IMPRESSION: Stable COPD and scarring in the lung bases right greater than left. No pulmonary edema, congestive heart failure or confluent pneumonia. Stable loss of vertebral body height anterior T5, T6 and L1 vertebral body level, osteoporosis, kyphosis, depression superior endplate of L3 likely secondary to Schmorl's node. Mild loss of vertebral body height anterior T3 level, not seen on previous examination 2016. Electronically Signed: Eryn oRth MD at 22:39 EDT , Service support ,
--- NOTE | 2019-03-24 22:23 | EKG12_ITS ---
Test Reason : CP Blood Pressure : / mmHG Vent. Rate : 082 BPM Atrial Rate : 082 BPM P-R Int : 126 ms QRS Dur : 086 ms QT Int : 354 ms P-R-T Axes : 024 -19 059 degrees QTc Int : 413 ms Sinus rhythm with Premature atrial complexes Leftward [place] Incomplete right bundle branch block Inferior SC, age undetermined, cannot be excluded Confirmed by MALENA ONEILL, ALANNA ([id number]), pictures editor OMAYRA LEWIS ([id number]) on 03/28/2019 1:37:19 PM Referred By: SIMBA Confirmed By:ALANNA GUY MD
[2019-03-24] MEDS: HYDROcodone Bitartrate/Apap 5/325 Tablet PO (23:13)
[2019-03-24] MEDS: predniSONE 20 MG Tablet 40 MG PO (23:13)
[2019-03-24 23:17] VITALS: BP 143/78; PULSE 94; RESP 22; O2SAT 96
[2019-03-25 01:35] VITALS: O2SAT 91
--- NOTE | 2019-03-25 02:12 | ED.RN ---
pt unable to get ahold of neighbor who has [place] to her house. pt is also on oxygen and also only has check to pay a driver/sales workers. pt assisted to bed. denied wanting food or drink. encouraged to call with any needs the ER can assist with.
--- NOTE | 2019-03-25 06:00 | ED.RN ---
BERRY CHECKED IN, SHE IS STILL AT [facility] SHE IS STILL TRYING TO GET HERE, HOWEVER SHE STILL IS UNABLE TO GET PLACEMENT. IN THE EVENT SHE IS UNABLE TO MAKE IT HERE, THEIR SHIFT CHANGE IS AT EIGHT AM.
--- NOTE | 2019-03-25 06:35 | ED.RN ---
pharmacy filled prescriptions for pt and she took her pain med.
--- NOTE | 2019-03-25 06:45 | ED.RN ---
[facility] w/c transport for pt to home.
== END 2019-03-25 06:45 | disposition home or self-care (01) ==
PROVIDERS: Emergency Provider Emergency Medicine
DX: R07.89 Other chest pain (principal); I25.10 Atherosclerotic heart disease of native coronary artery without angina pectoris; J44.9 Chronic obstructive pulmonary disease, unspecified; I10 Essential (primary) hypertension; E78.00 Pure hypercholesterolemia, unspecified; Z99.81 Dependence on supplemental oxygen; Z87.891 Personal history of nicotine dependence; Z79.51 Long term (current) use of inhaled steroids; Z79.82 Long term (current) use of aspirin; Z79.899 Other long term (current) drug therapy
CPT/HCPCS: 71046; 93005; 99285

== ENCOUNTER 2019-05-08 05:29 | Observation (INO) | payer MEDICARE, SELFPAY ==
[2019-05-08] VITALS (19 sets, daily range): BP systolic 115–135; BP diastolic 59–78; PULSE 81–114; RESP 16–25; TEMP 36.6–37.1; O2SAT 93–98; BMI 23.5; BMI 23.7
--- NOTE | 2019-05-08 05:47 | RAD_ITS ---
STUDY: X-RAY CHEST REASON FOR EXAM: Female, 79 years old. Dyspnea TECHNIQUE: AP portable COMPARISON: 03/24/2019 FINDINGS: Stable hyperinflation of the lungs consistent with COPD changes. There are linear lung base opacities likely due to underlying atelectasis. Normal size heart. Normal mediastinum and lona. Normal visualized pulmonary arteries. There is atherosclerotic tortuosity of the aortic arch and descending thoracic aorta. There are diffuse degenerative changes of the visualized thoracic spine. Normal visualized ribs, clavicles, and shoulders. There is no demonstrated abnormality of the visualized soft tissue structures of the upper abdomen. RAD/Chest 1 View (Portable) IMPRESSION: COPD changes with bibasilar linear subsegmental atelectasis. Electronically Signed: Mark Fuller, at 6:25 EDT Tel , Service support ,
--- NOTE | 2019-05-08 05:47 | EKG12_ITS ---
Test Reason : SOB Blood Pressure : / mmHG Vent. Rate : 106 BPM Atrial Rate : 106 BPM P-R Int : 146 ms QRS Dur : 080 ms QT Int : 328 ms P-R-T Axes : 027 -12 034 degrees QTc Int : 435 ms Sinus tachycardia Possible Left atrial enlargement Low voltage QRS Confirmed by MANJINDER ONEILL, RENEA ([id number]), [place] editor OMAYRA LEWIS ([id number]) on 05/10/2019 1:27:02 PM Referred By: ANDREW Confirmed By:RENEA DUNBAR MD
--- NOTE | 2019-05-08 05:48 | RAD_ITS ---
STUDY: X-RAY - RIGHT TIBIA AND FIBULA REASON FOR EXAM: Female, 79 years old. Right lower leg redness and wound TECHNIQUE: AP and lateral view(s) of the tibia and fibula were obtained. COMPARISON: None. FINDINGS: Normal visualized tibia. Normal visualized fibula. The soft tissue structures are unremarkable. No osseous erosions or subcutaneous emphysema visualized. RAD/Tibia & Fibula 2 Views IMPRESSION: Negative x-ray examination of the tibia and fibula. Electronically Signed: Mark Fuller, at 6:27 EDT Tel , Service support ,
[2019-05-08 06:22] LABS: Absolute Lymphocyte Count 1.38 X10^3/uL (0.83-4.51); Absolute Neutrophil Count 4.8 X10^3/uL (2.0-7.7); Basophil# 0.09 X10^3/uL; Basophil% 1.2 % (0-1); Eosinophil# 0.23 X10^3/uL; Eosinophils% 3.1 % (0-5); Hematocrit 31.5 % (37-47); Hemoglobin 9.5 g/dL (12.0-15.0); Lymphocyte # 1.38 X10^3/ul (4.0); Lymphocyte % 18.9 % (19-41); Mean Corp Hgb Conc 30.2 g/dL (32-36); Mean Corpuscular Hgb 29.1 pg (27.0-32.0); Mean Corpuscular Volume 96.3 fL (81-99); Mean Platelet Vol. 8.8 fl (6.2-12.0); Monocyte% 10.9 % (0-10); NRBC Flagged by Analyzer 0 % (0-5); Neutrophil # 4.77 X10^3/uL (2.7-7.7); Neutrophil % 65.2 % (47-70); Platelet Count 272 K/mm3 (150-450); RBC Distribution Width CV 17.5 % (11.6-14.6); RBC Distribution Width SD 61.5 fl (35.1-43.9); Red Blood Count 3.27 M/mm3 (4.2-5.4); White Blood Count 7.3 K/mm3 (4.4-11.0)
[2019-05-08 06:31] LABS: Prothrombin Time (Protime)PT. 13.1 SECONDS (11.7-14.9)
[2019-05-08 06:32] LABS: Partial Thromboplast Time 28.6 Seconds (24.1-36.2)
[2019-05-08 06:43] LABS: Lactic Acid 1.3 mmol/L (0.4-2.0)
[2019-05-08 06:46] LABS: ALB/GLOB Ratio 0.9 RATIO (0.9-2.4); AST(SGOT) 21 U/L (15-37); Alanine Aminotransfer ALT/SGPT 45 U/L (13-56); Albumin, Serum 2.9 g/dL (3.2-5.0); Alkaline Phosphatase 80 U/L (45-117); Anion Gap 4 (5-15); BUN 9 mg/dL (7-18); BUN/Creat Ratio 12.3 RATIO (10-20); Calcium,Total 9.4 mg/dL (8.5-10.1); Chloride 108 mmol/L (98-107); Creatinine, Serum 0.73 mg/dL (0.55-1.02); EST Glomerular Filtration Rate 82 mL/min (>60); Est Glom Filt Rate - Afr Amer 99 mL/min (>60); Estimated Creatinine Clearance 37.74 ml/min; Globulin 3.4 g/dL (2.2-4.2); Glucose 144 mg/dL (74-106); Potassium 3.8 mmol/L (3.5-5.1); Protein, Total 6.3 g/dL (6.4-8.2); Sodium Level 145 mmol/L (136-145)
[2019-05-08] MEDS: 0.9% Normal Saline 1,000 ML 150 ML IV (07:10)
--- NOTE | 2019-05-08 07:31 | ED.DCSUM_ITS ---
History of Present Illness Chief Complaint: Shortness of Breath Informant: Patient, Manager Architectural Onset: Days - 3 or 4 Context: Gradual Onset Timing: Waxes and wanes Quality: just short of breath. denies wheezing. Location: chest Current Severity: Mild Maximum Severity: Moderate Worsened by: exertion Narrative: Patient is confusing history, she initially states that she came in because her albuterol treatment did not help, but then states that after doing an albuterol treatment and using an albuterol MDI afterwards just prior to paramedics arrival, she has felt better ever since. She is a very poor historian. She states she has been coughing, but felt more short of breath without any chest discomfort this morning. We noted that she has a red right lower extremity. She states it has been like that for 4 days or so and it is not bothering her. She has a large wound there in the middle of it and states that she did not do anything and that it arose on its own. States the history of coronary disease with a stent and COPD. She is on 3L home oxygen. Although the patient denied having chest discomfort, she later told the nurse that she was having chest tightness that has been present for days. - Past Medical History (1) Atherosclerotic heart disease of [place] coronary artery without angina pectoris Status: Chronic (2) COPD (chronic obstructive pulmonary disease) Status: Chronic (3) Chronic respiratory failure with hypoxia Status: Chronic (4) Hyperlipidemia Status: Chronic (5) Hypertension Status: Chronic (6) PFO (patent foramen ovale) Status: Chronic (7) Post PTCA Status: Chronic (8) Tobacco abuse disorder Status: Chronic Past Medical History - Allergies and Home Meds Allergies/Adverse Reactions: Allergies isosorbide Adverse Reaction (Intermediate, Verified 03/24/19 20:21) Shortness of breath Primary Care Physician: REE GOOD [Other] Surgical History: - - History of craniotomy status post intracranial hemorrhage in 1998, history of hand and wrist surgeries, recent appendectemy Lives: Alone Smoking Status: Former smoker - Family History Maternal Family History: Family History (Last Reviewed 01/05/19 @ 06:16 by Cosme Turner MD) Mother CAD (coronary artery disease) Father CAD (coronary artery disease) Sister CAD (coronary artery disease) Family History: Reports: Heart Disease Paternal Family History: Family History (Last Reviewed 01/05/19 @ 06:16 by Cosme Turner MD) Mother CAD (coronary artery disease) Father CAD (coronary artery disease) Sister CAD (coronary artery disease) Family History: Reports: Heart Disease - of [place] at age 58 Sibling Family History: Family History (Last Reviewed 01/05/19 @ 06:16 by Cosme Turner MD) Mother CAD (coronary artery disease) Father CAD (coronary artery disease) Sister CAD (coronary artery disease) Family History: Reports: Stroke Review of Systems General: Reports: Malaise. Denies: Chills, Fever, Sweats Eyes: Denies: Visual changes - bilaterally, Diplopia ENT: Denies: Rhinorrhea, Sore throat Cardiovascular: Reports: Chest pain - tightness. Denies: Palpitations Respiratory: Reports: Dyspnea, Cough, Dyspnea on exertion. Denies: Sputum, Orthopnea Gastrointestinal: Denies: Abdominal pain, Nausea, Vomiting, Diarrhea, Melena, Hematochezia Genitourinary: Denies: Dysuria, Hematuria, Frequency Musculoskeletal: Reports: Swelling - RLE, Extremity Pain - mild RLE. Denies: Neck pain, Back pain Skin: Reports: Wounds. Denies: Rash Neurological: Denies: Headache, Weakness, Numbness Physical Exam Vital Signs/Narrative: Vital Signs Temp Pulse Resp BP Pulse Ox 05/08/19 07:13 98.5 F 104 H 23 H 123/66 H 97 05/08/19 05:48 98 05/08/19 05:47 98.5 F 05/08/19 05:30 98 F 114 H 24 H 117/75 97 Inital Vital Signs reviewed: Yes General: Well nourished, Well developed, No Acute Distress Head: Normocephalic, Atraumatic Eyes: Perrl, EOMI ENT: Moist mucous membranes, No rhinorrhea Neck: Supple, Nontender, No lymphadenopathy, No JVD Cardiovascular: Regular rate, Regular rhythm, No murmurs, Tachycardia Respiratory: No distress, CTA bilaterally, Chest nontender, Diminished Abdomen: Soft, Nontender, Nondistended, Normal bowel sounds Back: Nontender, Normal Inspection Extremities: Tenderness - RLE cellulitis, Edema - RLE 1+ Skin: Normal color, - - large 6-7cm wound right anterior mid-lower leg w/ necrotic superficial skin overlying that would be consistent with a skin tear. exposed SQ fat present w/ serous discharge, nothing purulent. tender. surrounding tender erythemetous cellulitis down to foot, all tender. no SQ emphysema. no lymphangitis. no palpable abscess. Neurological: Alert, Oriented x3, Cranial nerves II-XII grossly intact, Normal Strength, Normal Sensation Psychological: Normal affect, Normal Mood Diagnostic/Tx/Re-eval Impressions Chest X-Ray 05/08/19 05:47 IMPRESSION: COPD changes with bibasilar linear subsegmental atelectasis. Electronically Signed: Kirtsaul Jonny, at 6:25 EDT Tel , Service support , Tibia/Fibula X-Ray 05/08/19 05:48 IMPRESSION: Negative x-ray examination of the tibia and fibula. Electronically Signed: Kirtsaul Jonny, at 6:27 EDT Tel , Service support , 05/08/19 05:47 Chest 1 View (Portable) [RAD] Stat 05/08/19 05:48 Tibia & Fibula 2 Views [RAD] Stat Laboratory Results 05/08/19 05/08/19 05/08/19 06:05 06:05 06:05 WBC 7.3 RBC 3.27 L Hgb 9.5 L Hct 31.5 L MCV 96.3 MCH 29.1 MCHC 30.2 L RDW Std Deviation 61.5 H RDW Coeff of Lucy 17.5 H Plt Count 272 MPV 8.8 Immature Gran % (Auto) 0.700 Neut % (Auto) 65.2 Lymph % (Auto) 18.9 L [place] % (Auto) 10.9 H Eos % (Auto) 3.1 Baso % (Auto) 1.2 H Absolute Neuts (auto) 4.8 Absolute Lymphs (auto) 1.38 Nucleated RBC % 0 PT 13.1 INR 1.0 APTT 28.6 Sodium 145 Potassium 3.8 Chloride 108 H Carbon Dioxide 33.0 H Anion Gap 4 L BUN 9 Creatinine 0.73 Estim Creat Clear Calc 37.74 Est GFR (MDRD) Af Amer 99 Est GFR (MDRD) Non-Af 82 BUN/Creatinine Ratio 12.3 Glucose 144 H Lactic Acid Calcium 9.4 Total Bilirubin 0.30 AST 21 ALT 45 Alkaline Phosphatase 80 Troponin I < 0.015 B-Natriuretic Peptide Total Protein 6.3 L Albumin 2.9 L Globulin 3.4 Albumin/Globulin Ratio 0.9 05/08/19 05/08/19 06:05 06:05 WBC RBC Hgb Hct MCV MCH MCHC RDW Std Deviation RDW Coeff of Lucy Plt Count MPV Immature Gran % (Auto) Neut % (Auto) Lymph % (Auto) [place] % (Auto) Eos % (Auto) Baso % (Auto) Absolute Neuts (auto) Absolute Lymphs (auto) Nucleated RBC % PT INR APTT Sodium Potassium Chloride Carbon Dioxide Anion Gap BUN Creatinine Estim Creat Clear Calc Est GFR (MDRD) Af Amer Est GFR (MDRD) Non-Af BUN/Creatinine Ratio Glucose Lactic Acid 1.3 Calcium Total Bilirubin AST ALT Alkaline Phosphatase Troponin I B-Natriuretic Peptide 36.4 Total Protein Albumin Globulin Albumin/Globulin Ratio - Rhythm Strip Rhythm Strip: Sinus Tach Rate: 106 Ectopy: None - EKG Initial EKG Interpretation: No Acute Injury Pattern, Sinus Tachycardia Prior: Unchanged - Medical Decision Making CXR shows no acute disease. labs are fairly unremarkable. lactate is WNL and her BNP is as well. She declined additional breathing treatments here. I am more concerned about her right leg wound and cellulitis. The wound appears to be most likely traumatic with secondary infection. The patient states she did not injure it, but may be a little confused. I think IV antibiotics and further inpatient evaluation would be best here, as the cellulitis is quite extensive, taking up most of her lower leg. Clinically she does not appear septic, but she meets criteria because of her respiratory rate and tachycardia. She does not appear to have pneumonia, and the only significant active infection appears to be a right lower extremity, which is probably causing the reaction. ED Disposition - Plan for ED Patient: Disposition: [facility] Diagnosis: COPD with exacerbation, Wound of right lower extremity, Cellulitis of right leg, Sepsis due to cellulitis Referrals: REE GOOD [Other]
[2019-05-08 07:38] LABS: Bacteria 0 SEEN /hpf (None Seen); Mucous, Urine 0 SEEN /hpf (<or=2+); Red Blood Cells-Urine 0 SEEN /hpf (0-5); Squamous Epithelial Cells - UA 0 SEEN /hpf (5-10); White Blood Cells 0 SEEN /hpf (0-5)
[2019-05-08 07:40] LABS: BNP,B-Type NATRIURETIC PEPTIDE 36.4 pg/mL (0-100)
[2019-05-08 07:48] LABS: Color, Urine Yellow (Yellow); Glucose, Dipstick Normal (Normal); Ketone-Dipstick Negative (Negative); Leukocyte Esterase-Dipstick Negative /ul (Negative); Nitrite-Dipstick Negative (Negative); Occult Blood-Urine 10 /ul (Negative); Protein-Dipstick Negative (Negative); Specific Gravity, Urine 1.025 (1.002-1.030); Urine Bilirubin Dipstick Negative (Negative); Urine Clarity Clear (Clear); Urine Urobilinogen Normal (Normal)
--- NOTE | 2019-05-08 09:08 | HP.PCM_ITS ---
Problem List (1) COPD with exacerbation Status: Chronic (2) Wound of right lower extremity Status: Acute Qualifiers: Encounter type: initial encounter Qualified Code(s): S81.801A - Unspecified open wound, right lower leg, initial encounter (3) Cellulitis of right leg Status: Acute History of Present Illness Date of Admission: 05/08/19 Chief Complaint: shortness of breath The patient is a 79 year old F who became short of breath earlier this morning. Called her neighbor who brought her to the emergency room. Patient still continues to feel short of breath though pulse ox is been in the 90s since she is arrived. Chest x-ray is unremarkable. Patient is on 3 L of oxygen at home. Patient was found to have a large wound on her right araiza with corresponding cellulitis around the araiza. Patient received IV Zosyn in the emergency room. Patient's neighbor noted the wound about 4 days ago when patient was wearing shorts but the patient has no idea how she developed the wound on her right araiza. Patient denies any falls and states that she has not fallen in about a year. Denies any other injuries that she is aware of. [] Past Medical History Past Medical History (Chronic Problems): Chronic Problems (Last Reviewed 01/05/19 @ 06:16 by Cosme Turner MD) COPD with exacerbation (Chronic) Post PTCA (Chronic) Atherosclerotic heart disease of [place] coronary artery without angina pectoris (Chronic) Presence of coronary angioplasty implant and graft (Chronic) PFO (patent foramen ovale) (Chronic) CAD (coronary artery disease) (Chronic) COPD (chronic obstructive pulmonary disease) (Chronic) Hypertension (Chronic) Hyperlipidemia (Chronic) Tobacco abuse disorder (Chronic) Chronic respiratory failure with hypoxia (Chronic) Medical History: Medical History (Last Reviewed 01/05/19 @ 06:16 by Cosme Turner MD) Dyspnea R06.00 Allergies isosorbide Adverse Reaction (Intermediate, Verified 03/24/19 20:21) Shortness of breath Home Medications: Ambulatory Orders Medication Instructions Recorded Lisinopril [Zestril] 10 mg PO DAILY 11/11/15 Simvastatin [Zocor] 20 mg PO QHS 11/11/15 Oxygen, Home [Home Oxygen] 3 lpm NASAL DAILY PRN 12/12/15 Tiotropium [place] [Spiriva 18 MCG] 1 puff INHALATION BID 12/12/15 Albuterol Aerosols [Ventolin 2.5 mg INHALATION TID PRN 07/14/17 Aerosols] Aspirin [Aspirin, Baby] 81 mg PO QHS 07/14/17 Amlodipine Besylate 5 mg PO DAILY 01/05/19 Budesonide/Formoterol 160/4.5 2 puff INHALATION BID 01/05/19 [Symbicort 160/4.5 Mcg Inhaler (SP)] Metoprolol Tartrate [Lopressor 12.5 mg PO BID 01/05/19 (beta megha)] Surgical History: - - History of craniotomy status post intracranial hemorrhage in 1998, history of hand and wrist surgeries, recent appendectemy Psychiatric History: No pertinent psych hx CHANNEL DEVELOPMENT DIRECTOR History: No pertinent CHANNEL DEVELOPMENT DIRECTOR history Lives: Alone Smoking Status: Former smoker - *Family History Maternal Family History: Family History (Last Reviewed 05/08/19 @ 09:10 by Johnny Huerta DO) Mother CAD (coronary artery disease) Father CAD (coronary artery disease) Sister CAD (coronary artery disease) History Items: Heart Disease Paternal Family History: Family History (Last Reviewed 05/08/19 @ 09:10 by Johnny Huerta DO) Mother CAD (coronary artery disease) Father CAD (coronary artery disease) Sister CAD (coronary artery disease) History Items: Heart Disease - of [place] at age 58 Sibling Family History: Family History (Last Reviewed 05/08/19 @ 09:10 by Johnny Huerta DO) Mother CAD (coronary artery disease) Father CAD (coronary artery disease) Sister CAD (coronary artery disease) History Items: Stroke Review of Systems Constitutional: Denies: Anorexia, Chills, Fever Eyes: Denies: Blurred vision, Double vision HEENT: Denies: Head Aches, Sinus Congestion, Sinus Drainage Cardiovascular: Reports: Chest Pain - With cough, Edema - And right lower extremity Respiratory: Reports: Cough, Shortness of Breath. Denies: Sputum production Gastrointestinal: Denies: Abdominal Pain, Nausea, Vomiting Genitourinary: Denies: Dysuria Musculoskeletal: Denies: Joint Pain, Joint Tenderness Skin: Reports: Wounds - Wound on her other extremity with surrounding erythema, - Neurological: Denies: Numbness, Tingling, Focal weakness Psychiatric: Denies: Anxiety, Depression Endocrine: Denies: Change in Body Habitus, Heat/ Cold Intolerance Hematologic/ Lymphatic: Denies: Easy Bruising, Easy Bleeding, Hx of blood clot Comment: A 10 point review of systems were negative except as mentioned in the history of present illness and the other review of systems. VTE Information - Inpt Only VTE Present on Admission: No VTE Mechan Device Prophylaxis: None VTE Pharm Prophylaxis ordered?: Yes Patient Problems: Active and Suspected Problems (Last Reviewed 01/05/19 @ 06:16 by Cosme Turner MD) Wound of right lower extremity (Acute) Cellulitis of right leg (Acute) Sepsis due to cellulitis (Acute) - Physical Exam General: Alert, Cooperative, No apparent distress HEENT: Atraumatic, Normocephalic, - - No sinus tenderness Oral: Moist Mucosa, No Gingival or Mucosal Lesions/ Ulcerations Neck: No Nodes, Thyroid Normal Size and Texture Lungs: Clear to auscultation, Diminished Cardiovascular: Regular rate, Regular Rhythm, Normal S1, Normal S2, No murmurs Abdomen: Bowel Sounds Present, Soft, Non Tender, Non-Distended, No Hepato- splenomegaly Extremities: No Calf Tenderness, - - Trace edema in the right lower extremity. No edema in the left lower extremity. Skin: - - Large superficial wound on the right anterior araiza with overlying eschar which may be just compromised skin. No purulence can be expressed no induration. Some corresponding tenderness around it. Patient does have a confluent light erythema surrounding the wound. Musculoskeletal: No Tenderness to Palpation of Joints or Extremities, No Muscle Wasting Neurological: Neuro grossly intact, Sensory exam intact to light touch and pain, - - No clonus Psych/Mental Status: Normal Affect, Appropriate Vital Signs Temp Pulse Resp BP Pulse Ox 36.9 C 102 H 20 H 132/70 H 94 05/08/19 07:13 05/08/19 08:50 05/08/19 08:50 05/08/19 08:50 05/08/19 08:50 Oxygen Flow Rate (L/min) 3 Oxygen Delivery Method Nasal Cannula Weight: 60.3 kg Body Mass Index (BMI) 23.5 Finger Stick Blood Glucose 186 Laboratory Tests Past 24 Hrs 05/08/19 05/08/19 05/08/19 06:05 06:05 06:05 WBC 7.3 RBC 3.27 L Hgb 9.5 L Hct 31.5 L MCV 96.3 MCH 29.1 MCHC 30.2 L RDW Std Deviation 61.5 H RDW Coeff of Lucy 17.5 H Plt Count 272 MPV 8.8 Immature Gran % (Auto) 0.700 Neut % (Auto) 65.2 Lymph % (Auto) 18.9 L [place] % (Auto) 10.9 H Eos % (Auto) 3.1 Baso % (Auto) 1.2 H Absolute Neuts (auto) 4.8 Absolute Lymphs (auto) 1.38 Nucleated RBC % 0 PT 13.1 INR 1.0 APTT 28.6 Sodium 145 Potassium 3.8 Chloride 108 H Carbon Dioxide 33.0 H Anion Gap 4 L BUN 9 Creatinine 0.73 Estim Creat Clear Calc 37.74 Est GFR (MDRD) Af Amer 99 Est GFR (MDRD) Non-Af 82 BUN/Creatinine Ratio 12.3 Glucose 144 H Lactic Acid Calcium 9.4 Total Bilirubin 0.30 AST 21 ALT 45 Alkaline Phosphatase 80 Troponin I < 0.015 B-Natriuretic Peptide Total Protein 6.3 L Albumin 2.9 L Globulin 3.4 Albumin/Globulin Ratio 0.9 Urine Color Urine Clarity Urine pH Ur Specific [place] Urine Protein Urine Glucose (UA) Urine Ketones Urine Occult Blood Urine Nitrite Urine Bilirubin Urine Urobilinogen Ur Leukocyte Esterase Urine RBC Urine WBC Ur Squamous Epith Cells Urine Bacteria Urine Mucus 05/08/19 05/08/19 05/08/19 06:05 06:05 07:30 WBC RBC Hgb Hct MCV MCH MCHC RDW Std Deviation RDW Coeff of [place] Plt Count MPV Immature Gran % (Auto) Neut % (Auto) Lymph % (Auto) [place] % (Auto) Eos % (Auto) Baso % (Auto) Absolute Neuts (auto) Absolute Lymphs (auto) Nucleated RBC % PT INR APTT Sodium Potassium Chloride Carbon Dioxide Anion Gap BUN Creatinine Estim Creat Clear Calc Est GFR (MDRD) Af Amer Est GFR (MDRD) Non-Af BUN/Creatinine Ratio Glucose Lactic Acid 1.3 Calcium Total Bilirubin AST ALT Alkaline Phosphatase Troponin I B-Natriuretic Peptide 36.4 Total Protein Albumin Globulin Albumin/Globulin Ratio Urine Color Yellow Urine Clarity Clear Urine pH 5.0 Ur Specific [place] 1.025 Urine Protein Negative Urine Glucose (UA) Normal Urine Ketones Negative Urine Occult Blood 10 H Urine Nitrite Negative Urine Bilirubin Negative Urine Urobilinogen Normal Ur Leukocyte Esterase Negative Urine RBC 0 SEEN Urine WBC 0 SEEN Ur Squamous Epith Cells 0 SEEN Urine Bacteria 0 SEEN Urine Mucus 0 SEEN Chest x-ray reviewed and showed no pulmonary infiltrate nor pulmonary edema. Assessment/Plan All Active Problems (Last Reviewed 01/05/19 @ 06:16 by Cosme Turner MD) Wound of right lower extremity (Acute) Cellulitis of right leg (Acute) Sepsis due to cellulitis (Acute) 1. Right lower extremity cellulitis * Likely the nidus is due to her wound on the affected leg * Patient received Zosyn in the emergency room. I am not actually concerned about gram negatives and more concerned about gram-positive's such as staph or strep, favoring the bladder. Patient be on vancomycin for now until he get further culture identification * Check culture and adjust antibiotics accordingly * Consider imaging if wound presents with worsening or if new findings are associated after patient has been evaluated wound care * Patient was tachypneic and tachycardic though I do not feel that this is related with sepsis but rather her COPD exacerbation 2. Acute COPD exacerbation * No audible wheezing but patient is profoundly diminished. * Will continue with her home medications, but add prednisone burst plus as needed albuterol aerosols 3. Right lower extremity wound * Etiology of the wound is unknown * Will have the wound care evaluate the patient * Consider imaging if wound does demonstrate worsening or if new findings are found upon unroofing of the sharp. 4. VTE prophylaxis with molecular weight heparin. Patient is moderate risk 5. Advanced care planning: Discussed with the patient. Patient wishes to be full code however she does not want to be intubated in the event of acute respiratory failure. Code Visit Inpatient E&M: 18478 Init Hosp L3
[2019-05-08] MEDS: Ipratropium/Albuterol Sulfate 3 ML AMPUL.NEB INHALATION ×3 (09:30→19:09)
[2019-05-08 10:40] LABS: Erythrocyte Sedimentation Rate 17 mm/hr (0-30)
[2019-05-08] MEDS: predniSONE 20 MG Tablet 40 MG PO (11:02)
[2019-05-08] MEDS: Metoprolol Tartrate 25 MG Tablet 12.5 MG PO ×2 (11:03→22:00)
[2019-05-08] MEDS: Enoxaparin 40 MG/0.4 ML Syringe SC (11:06)
[2019-05-08] MEDS: Vancomycin IV 1,000 MG/200 ML BAG 200 MG IV (11:06)
[2019-05-08] MEDS: Lisinopril 10 MG Tablet PO (11:06)
[2019-05-08] MEDS: amLODIPine 5 MG Tablet PO (11:06)
--- NOTE | 2019-05-08 11:48 | PCM.RX.CS ---
Consult Pharmacy has been consulted to manage selected antiobiotic: Vancomycin Type of Consult: New start Suspected Infection: Sepsis, Skin/Soft tissue Labs: Sodium 145 mmol/L (136-145) 05/08/19 06:05 Potassium 3.8 mmol/L (3.5-5.1) 05/08/19 06:05 Chloride 108 mmol/L (98-107) H 05/08/19 06:05 Carbon Dioxide 33.0 mmol/L (21.0-32.0) H 05/08/19 06:05 4 (5-15) L 05/08/19 06:05 BUN 9 mg/dL (7-18) 05/08/19 06:05 0.73 mg/dL (0.55-1.02) 05/08/19 06:05 Est GFR (MDRD) Af Amer 99 mL/min (>60) 05/08/19 06:05 Est GFR (MDRD) Non-Af 82 mL/min (>60) 05/08/19 06:05 12.3 RATIO (10-20) 05/08/19 06:05 Glucose 144 mg/dL (74-106) H 05/08/19 06:05 Weight used for dosin.8 kg Estimated Creatinine Clearance: 38 ML/MIN Goal Trough: 15-20 mcg/mL Pharmacy Plan for Drug Dosing: Give initial dose of 1000mg IV x1, then continue with 750mg IV q24h. Obtain a trough before the 3rd dose. Pharmacy Service will continue to monitor and adjust dosing as required. Follow-Up Labs: Trough Vancomycin Labs to be done on [date and time ordered]: 05/10/19 10:30
[2019-05-08] MEDS: Albuterol 2.5 MG/3 ML VIAL.NEB. INHALATION (15:14)
[2019-05-08] MEDS: Aspirin 81 MG TAB.CHEW PO (21:59)
[2019-05-08] MEDS: Atorvastatin Calcium 10 MG Tablet PO (22:01)
[2019-05-09] VITALS (9 sets, daily range): BP systolic 126–144; BP diastolic 62–77; PULSE 81–96; RESP 18–24; TEMP 36.8–37; O2SAT 88–95
--- NOTE | 2019-05-09 03:30 | CPS ---
RT called by nursing to give prn tx. Upon arrival to pt room pt asleep. No distress noted. Per nursing do not wake pt for prn tx at this time.
[2019-05-09] MEDS: Albuterol 2.5 MG/3 ML VIAL.NEB. INHALATION ×2 (03:48→11:07)
[2019-05-09] MEDS: Ipratropium/Albuterol Sulfate 3 ML AMPUL.NEB INHALATION ×2 (06:53→13:47)
--- NOTE | 2019-05-09 08:05 | NURSING ---
wound photo: right lower leg
[2019-05-09] MEDS: predniSONE 20 MG Tablet 40 MG PO (08:20)
[2019-05-09] MEDS: Metoprolol Tartrate 25 MG Tablet 12.5 MG PO (08:20)
[2019-05-09] MEDS: Lisinopril 10 MG Tablet PO (08:22)
[2019-05-09] MEDS: Enoxaparin 40 MG/0.4 ML Syringe SC (08:22)
[2019-05-09] MEDS: amLODIPine 5 MG Tablet PO (08:22)
--- NOTE | 2019-05-09 10:17 | CASEMGMT ---
Social Work Note Per paper tube grader questions, pt has completed LW but hasn't provided [facility] with a copy. Pt denied completing HCPOA. Yolanda Barlow SUPERVISORY HISTORIAN, COMPUTER DISCOVERY TEACHER
--- NOTE | 2019-05-09 10:45 | DCINST_ITS ---
- Discharge Diagnoses Current Active Problems: Current Active and Chronic Problems (Last Reviewed 01/05/19 @ 06:16 by Cosme Turner MD) COPD with exacerbation (Chronic) Wound of right lower extremity (Acute) Cellulitis of right leg (Acute) Sepsis due to cellulitis (Acute) You will use the following diet at home:: No restrictions Your food should be the consistency of: Regular Your liquids should be the consistency of: Regular/Thin Discharge Activity: Return to Normal Activity Weight Bearing Status: Weight bearing as tolerated Call your doctor if your incision/area has: Continuous Slow Oozing, Sudden Increased Bleeding, Increased Pain/ Swelling, Increased Redness, Foul Smelling Discharge Call your doctor if you observe: Fever of 101 or Higher Change Dressing in (Days):: 1 - cover with guaze, reinforce with RUPA wrap. Cleanse incision/area with: Soap & Water, Keep Dressing Clean & Dry Instructions: Treatments for COPD Allergies/Adverse Reactions: Allergies isosorbide Allergy (Intermediate, Verified 05/08/19 12:17) Shortness of breath Medications to take at Discharge Lisinopril [Zestril] 10 mg PO DAILY 11/11/15 Simvastatin [Zocor] 20 mg PO QHS 11/11/15 Oxygen, Home [Home Oxygen] 3 lpm NASAL DAILY PRN 12/12/15 Tiotropium [place] [Spiriva 18 MCG] 1 puff INHALATION BID 12/12/15 Albuterol Aerosols [Ventolin Aerosols] 2.5 mg INHALATION TID PRN 07/14/17 Aspirin [Aspirin, Baby] 81 mg PO QHS 07/14/17 Amlodipine Besylate 5 mg PO DAILY 01/05/19 Budesonide/Formoterol 160/4.5 [Symbicort 160/4.5 Mcg Inhaler (SP)] 2 puff INHALATION BID 01/05/19 Metoprolol Tartrate [Lopressor (beta megha)] 12.5 mg PO BID 01/05/19 Cephalexin [Keflex] 500 mg PO Q6 #36 cap 05/09/19 predniSONE tablet 2 tab PO DAILY@0800 #6 tab 05/09/19 The following prescriptions were given: Cephalexin [Keflex] 500 mg PO Q6 #36 cap Transmission Status: Pending to [facility] predniSONE tablet 2 tab PO DAILY@0800 #6 tab Transmission Status: Pending to [facility] Primary Care Physician: REE GOOD [Other] - Within 2 Weeks Test Results: Test results from this visit will be discussed in further detail at your follow- up appointment, if applicable. Please Follow Up With: Clinic,Wound When: 1 week Proposed Discharge Date: 05/09/19
--- NOTE | 2019-05-09 10:48 | DS.PCM_ITS ---
Discharge Date and Diagnosis - Problem List Patient Problems: Active and Suspected Problems (Last Reviewed 01/05/19 @ 06:16 by Cosme Turner MD) Wound of right lower extremity (Acute) Cellulitis of right leg (Acute) Date of Admission: 05/08/19 Date of Discharge: 05/09/19 - Primary Discharge Diagnosis Active and Suspected Problems (Last Reviewed 01/05/19 @ 06:16 by Cosme Turner MD) 1. Right lower extremity cellulitis * Likely the nidus is due to her wound on the affected leg * Patient received Zosyn in the emergency room. I am not actually concerned about gram negatives and more concerned about gram-positive's such as staph or strep, favoring the bladder. Patient be on vancomycin for now until he get further culture identification * Check culture and adjust antibiotics accordingly * Consider imaging if wound presents with worsening or if new findings are associated after patient has been evaluated wound care * Patient was tachypneic and tachycardic though I do not feel that this is related with sepsis but rather her COPD exacerbation * Discharge with Keflex to complete 10 day course of abx 2. Acute COPD exacerbation * No audible wheezing but patient is profoundly diminished. * Will continue with her home medications, but add prednisone burst for 5 days total. 3. Right lower extremity wound * Etiology of the wound is unknown * Will have the wound care evaluate the patient * follow up with wound care. - Secondary Discharge Diagnosis Chronic Problems (Last Reviewed 01/05/19 @ 06:16 by Cosme Turner MD) COPD with exacerbation (Chronic) Post PTCA (Chronic) Atherosclerotic heart disease of [place] coronary artery without angina pectoris (Chronic) Presence of coronary angioplasty implant and graft (Chronic) PFO (patent foramen ovale) (Chronic) CAD (coronary artery disease) (Chronic) COPD (chronic obstructive pulmonary disease) (Chronic) Hypertension (Chronic) Hyperlipidemia (Chronic) Tobacco abuse disorder (Chronic) Chronic respiratory failure with hypoxia (Chronic) Hospital Course and Treatment Imaging Results: Clinical Impression(s) from Imaging Studies Chest X-Ray 05/08/19 05:47 IMPRESSION: COPD changes with bibasilar linear subsegmental atelectasis. Electronically Signed: Mark Fuller, at 6:25 EDT Tel , Service support , Tibia/Fibula X-Ray 05/08/19 05:48 IMPRESSION: Negative x-ray examination of the tibia and fibula. Electronically Signed: Mark Fuller, at 6:27 EDT Tel , Service support , Consultations 05/08/19 09:52 Consult: Onc/Wound/commercial subcontractor Routine Comment: Operations: None Procedures: None Summary of Care Provided: The patient is a 79 year old F presents with shortness of breath. Patient was diagnosed with COPD exacerbation though her symptoms are rather mild patient remained stable on her typical amount of oxygen that she has at home. Patient developed a wound at least several days ago on her right lower extremity. Patient was also found to have surrounding erythema consistent with cellulitis. Patient was started on vancomycin and the erythema today has essentially resolved. Patient still does have the wound and did have a skin tear that was black over that that was removed and the wound is clean base without any purulence. No additional imaging is warranted for the wound at this time. Patient is continue with wound care for now and follow-up with wound clinic as outpatient. Patient surgically keep it clean and dry. [] Patient Problems: Active and Suspected Problems (Last Reviewed 01/05/19 @ 06:16 by Cosme Turner MD) Wound of right lower extremity (Acute) Cellulitis of right leg (Acute) - Physical Exam General: Alert, No apparent distress HEENT: Atraumatic, Normocephalic Oral: Moist Mucosa, No Gingival or Mucosal Lesions/ Ulcerations Neck: No Nodes, Thyroid Normal Size and Texture Lungs: Normal air movement, Diminished Cardiovascular: Regular rate, Regular Rhythm, Normal S1, Normal S2, No murmurs Abdomen: Bowel Sounds Present, Soft, Non Tender, Non-Distended, No Hepato- splenomegaly Extremities: No edema Skin: - - resolved erythema of RLE. superficial large wound on right anterior araiza. Psych/Mental Status: Normal Affect, Appropriate Vital Signs Temp Pulse Resp BP Pulse Ox 37.0 C 93 20 H 144/66 H 95 05/09/19 08:15 05/09/19 08:20 05/09/19 08:15 05/09/19 08:15 05/09/19 08:15 Oxygen Flow Rate (L/min) 4 Oxygen Delivery Method Nasal Cannula Weight: 58.831 kg Body Mass Index (BMI) 23.7 Finger Stick Blood Glucose 186 Intake and Output for Last 24 Hours 05/07/19 05/08/19 05/09/19 23:59 23:59 23:59 Intake Total 1115 / 1115 Balance 1115 / 1115 Microbiology Past 72 Hours 05/08/19 10:17 Gram Stain - Final Wound - Leg, Right Discharge Activity: Return to Normal Activity Weight Bearing Status: Weight bearing as tolerated Call your doctor if your incision/area has: Continuous Slow Oozing, Sudden Increased Bleeding, Increased Pain/ Swelling, Increased Redness, Foul Smelling Discharge Call your doctor if you observe: Fever of 101 or Higher Change Dressing in (Days):: 1 - cover with guaze, reinforce with RUPA wrap. Cleanse incision/area with: Soap & Water, Keep Dressing Clean & Dry Home Medications: Medications to take at Discharge Lisinopril [Zestril] 10 mg PO DAILY 11/11/15 Simvastatin [Zocor] 20 mg PO QHS 11/11/15 Oxygen, Home [Home Oxygen] 3 lpm NASAL DAILY PRN 12/12/15 Tiotropium [place] [Spiriva 18 MCG] 1 puff INHALATION BID 12/12/15 Albuterol Aerosols [Ventolin Aerosols] 2.5 mg INHALATION TID PRN 07/14/17 Aspirin [Aspirin, Baby] 81 mg PO QHS 07/14/17 Amlodipine Besylate 5 mg PO DAILY 01/05/19 Budesonide/Formoterol 160/4.5 [Symbicort 160/4.5 Mcg Inhaler (SP)] 2 puff INHALATION BID 01/05/19 Metoprolol Tartrate [Lopressor (beta megha)] 12.5 mg PO BID 01/05/19 Cephalexin [Keflex] 500 mg PO Q6 #36 cap 05/09/19 predniSONE tablet 2 tab PO DAILY@0800 #6 tab 05/09/19 Following Prescrptions Were Given to Patient: Cephalexin [Keflex] 500 mg PO Q6 #36 cap Transmission Status: Pending to [facility] predniSONE tablet 2 tab PO DAILY@0800 #6 tab Transmission Status: Pending to [facility] Primary Care Physician: REE GOOD [Other] - Within 2 Weeks Please Follow Up With: Clinic,Wound When: 1 week Patient Instructions: Treatments for COPD Disposition: Home with Home Health Minutes spent on discharge:: 32 Patient Condition:: Fair Medical Necessity - Tobacco Use Smoking Status: Former smoker Meaningful Use Info Meaningful Use Diagnoses (Choose all that apply): None applicable Code Visit OBSV E&M: 46913 Observation care discharge
--- NOTE | 2019-05-09 10:55 | CASEMGMT ---
VIPUL ARIAS Face to Face with patient for initial transition planning/care coordination assessment. VIPUL ARIAS introduced self and role at [facility]. Patient lying in bed, alert and oriented. Patient willing to participate in assessment and is able to answer all questions appropriately. Care providers, pharmacy, and demographics verified. Patient wishes to discharge home and would like HHC at discharge as recommended by therapy and hospitalist. VIPUL ARIAS provided patient with list of in-network HHC companies for patient to review and select preferences. Patient states she has no further needs or concerns at this time. CM to follow for discharge planning needs that may arise. PCP: Cullen Vasques Specialists: None Preferred Pharmacy: [facility] Insurance: [employer] Prescription Benefit: yes Living Will/HPOA: yes, sister Yoko Reece: sister in [place]. Neighbor Lora helps Living Arrangements: Patient lives in 1 story home with 2 steps to enter the home. Patient states she is independent at home and neighbor helps get groceries. Transportation: [employer] DME/HHC: Patient states she has tub bench, cane, nebulizer, and oxygen with portability through [facility]. VIPUL ARIAS will follow-up with patient regarding choice for HHC. Disposition Plan: Patient to discharge with HHC, support from neighbor, and follow-up plans in place. Yolanda NERI, RN, CM
--- NOTE | 2019-05-09 11:47 | CASEMGMT ---
VIPUL ARIAS NOTE: Patient requested to speak with CM regarding HHC. Patient reviewing list of HHC Agencies in network with her insurance. Patient states her first choice is [facility] and [facility] as her 2nd choice. Patient asked what services HHC would provide. VIPUL ARIAS updated the patient regarding HHC services and recommendations for nursing and therapy in the home. Patient is agreeable. VIPUL ARIAS sent referral to [facility] and am awaiting acceptance. CM will continue to follow this patient and plan for a safe discharge.
--- NOTE | 2019-05-09 12:47 | NURSING ---
IV site bad this morning. Pt leaving. Dr. Huerta paged via [employer] to ask if he wanted pt to have scheduled Vancomycin Iv still since there was an order for discharge. Dr. Huerta did not want Vancomycin given. Roxi Pinto and tHis nurse aware.
--- NOTE | 2019-05-09 13:30 | CASEMGMT ---
VIPUL ARIAS received call from patient's neighbor and friend, Lora Lange regarding care needs. Lora asked for resources for [facility] and services to help patient coordinate care. VIPUL ARIAS informed Lora that SW/CM will work on resource packet for her and leave with patient. VIPUL ARIAS received call from [facility] that they are able to accept the patient and requested wound care orders. VIPUL ARIAS faxed updated clinical information to [facility]. VIPUL ARIAS updated the patient regarding HHC setup with [facility], patient first choice for HHC. Patient voiced understanding.
--- NOTE | 2019-05-09 13:31 | CASEMGMT ---
Treatment for COPD care meets Observation Guidelines. This will be reviewed daily and if your treatment plan meets Inpatient criteria, the status will be changed. Part 2 Your insurance coverage is listed as [facility]. The Hospital stay will be covered per your insurance policy for Outpatient benefits. If you have questions, please call your insurance company or [facility] Patient Financial Services @ [phone]. Thank you
--- NOTE | 2019-05-09 13:36 | BH.SGPN.T2 ---
Intro role of CM to patient and VINCENT form explained re: Observation status for treatment of cellulitis of leg. Explained hospitalization will be paid per insurance policy for Outpatient billing and condition will continue to be evaluated for Inpt necessity. Also let pt know that [employer] sends paper in the billing packet with their phone number if questions arise. Discussed Pharmacy section of VINCENT form and self administered medication guideline. Pt verbalizes understanding and does not have further questions. Form signed and placed in chart, copy to pt. LIBERTAD MATTHEW BSN CM
--- NOTE | 2019-05-09 13:54 | CASEMGMT ---
Social Work Note RN HUGO Mata received phone call from pt's neighbor Lora requesting information regarding [employer] Home and Private Duty Aides. SW met with pt and introduced self and role at [facility]. Pt is alert and orientated and currently receiving breathing treatment. SW informed pt that pt's neighbor Lora requested information. SW provided pt with information on [employer]irection Home, PASSPORT and Private Duty Aides. Yolanda Barlow CLINICAL TRIALS SYSTEMS ADMINISTRATOR, WOOL WASHING MACHINE OPERATOR
--- NOTE | 2019-05-09 14:43 | CHAPLAIN ---
Type of Pastoral Visit _x__ Initial Visit ___ Follow-up Visit ___ On-call Visit ___ General Patient Visit ___ Spiritual Assessment ___ Family Conference ___ Bereavement ___ Rapid Response ___ Code Blue ___ Other (describe below) Pastoral Care Referral From _x__ Patient ___ Family ___ Nurse ___ Physician ___ Counselor Marriage And Family ___ Phlebotomy Director ___ Other (describe below) Sacrament/Intervention _x__ Active listening ___ Anointing ___ Confucianism ___ Bereavement ___ Communion ___ Isabella exploration ___ ___ Life review _x__ Prayer ___ Reconciliation ___ Sacrament of Sick _x__ Supportive presence ___ Wedding ___ Other (describe below) Pastoral Comments
== END 2019-05-09 15:44 | disposition home health service (06) ==
LOC: ED 07:45 → PCU 09:01 → MS3 05-09 08:50
PROVIDERS: Emergency Provider Emergency Medicine
DX: J44.1 Chronic obstructive pulmonary disease with (acute) exacerbation (principal); L03.115 Cellulitis of right lower limb; J96.11 Chronic respiratory failure with hypoxia; I25.10 Atherosclerotic heart disease of native coronary artery without angina pectoris; I10 Essential (primary) hypertension; E78.5 Hyperlipidemia, unspecified; Z79.82 Long term (current) use of aspirin; Z86.73 Personal history of transient ischemic attack (TIA), and cerebral infarction without residual deficits; Z87.891 Personal history of nicotine dependence; Z99.81 Dependence on supplemental oxygen; Z95.5 Presence of coronary angioplasty implant and graft; Z79.899 Other long term (current) drug therapy
CPT/HCPCS: 71045; 73590; 80053; 81001; 83605; 83880; 84484; 85025; 85610; 85652; 85730; 87040; 87070; 87077; 87086; 87205; 93005; 94640; 94667; 96361; 96365; 96366; 97162; 97165; 97530; 97802; 99218; 99285; J7030; A4216; G0378

== ENCOUNTER → 2019-08-03 | Outpatient (CLI) | payer MEDICARE, SELFPAY ==
[2019-05-08 09:55] VITALS: BMI 23.7
[2019-08-03 11:15] VITALS: PULSE 100; PULSE 101; PULSE 102; PULSE 103; PULSE 86; PULSE 88; PULSE 97; O2SAT 89; O2SAT 90; O2SAT 91; O2SAT 92; O2SAT 93; O2SAT 95
--- NOTE | 2019-08-03 11:48 | CPS ---
Patient was 87% on RA before beginning the test. 2L applied before test. Patient's SpO2 dropped to 89% at the 3 min austin, 3L was applied. Patient finished test on 3L. Tavares DIAZ
--- NOTE | 2019-08-03 15:13 | PCM.PSN.6M ---
PSN 6 Minute Walk Test - 6 Minute Walk Test 6 Minute Walk Test: 6 Minute Walk Test PSN:6-Minute Walk Test Start: 08/03/19 11:45 Freq: Status: Active Protocol: RESP.6MINW Document 08/03/19 11:15 JLA (Rec: 08/03/19 11:50 JLA [id number]) 6 Minute Walk Test Date Performed 08/03/19 Time Performed 11:00 Height 5 ft 3 in Weight: 58.06 kg Weight in Pounds 128.[address]: Lloyd Nieves Assistive device used: None Pre-test Oxygen Flow Rate (L/min) (L/min) 2 Oxygen Delivery Method Nasal Cannula Pulse Ox (%) 95 Pulse Rate (60-100 beats/min) 86 Dyspnea Sj Scale (0-10) 1 Exertion Sj Scale (6-20) 6 1st minute Oxygen Flow Rate (L/min) (L/min) 2 Oxygen Delivery Method Nasal Cannula Pulse Ox (%) 93 Pulse Rate (60-100 beats/min) 97 2nd minute Oxygen Flow Rate (L/min) (L/min) 2 Oxygen Delivery Method Nasal Cannula Pulse Ox (%) 90 Pulse Rate (60-100 beats/min) 101 H 3rd minute Oxygen Flow Rate (L/min) (L/min) 2 Oxygen Delivery Method Nasal Cannula Pulse Ox (%) 89 Pulse Rate (60-100 beats/min) 103 H 4th minute Oxygen Flow Rate (L/min) (L/min) 3 Oxygen Delivery Method Nasal Cannula Pulse Ox (%) 92 Pulse Rate (60-100 beats/min) 100 5th minute Oxygen Flow Rate (L/min) (L/min) 3 Oxygen Delivery Method Nasal Cannula Pulse Ox (%) 91 Pulse Rate (60-100 beats/min) 102 H 6th minute Oxygen Flow Rate (L/min) (L/min) 3 Oxygen Delivery Method Nasal Cannula Pulse Ox (%) 89 Pulse Rate (60-100 beats/min) 101 H Dyspnea Sj Scale (0-10) 4 Exertion Sj Scale (6-20) 16 Post-test Oxygen Flow Rate (L/min) (L/min) 3 Oxygen Delivery Method Nasal Cannula Pulse Ox (%) 92 Pulse Rate (60-100 beats/min) 88 Full Laps Walked 16 Partial Lap, Number of Tiles Walked 10 Total Distance Walked (ft) 954 08/03/19 11:48 Cardiopulmonary Services by Amada Lobo Patient was 87% on RA before beginning the test. 2L applied before test. Patient's SpO2 dropped to 89% at the 3 min austin, 3L was applied. Patient finished test on 3L. Tavares INTERNATIONAL FIRST OFFICER Initialized on 08/03/19 11:48 - END OF NOTE - Interpretation Interpretation: The patient was noted to be 87% on room air, but improved to 95% on 2 L nasal cannula. The patient did desaturate in the third minute of ambulation and required 3 L nasal cannula to complete ambulation. In total, the patient traveled 954 feet over the course of 6 minutes with no assistive devices and one break. These findings are consistent with a respiratory limitation exercise tolerance. - Recommendations Recommendations: The patient requires 2 L nasal cannula at rest and 3 L with exertion.
== END | disposition home or self-care (01) ==
LOC: PSN 11:14
PROVIDERS: Referring Provider Internal Medicine Critical Care Medicine; Visit Provider Internal Medicine Critical Care Medicine
DX: J96.11 Chronic respiratory failure with hypoxia (principal)
CPT/HCPCS: 94618

== ENCOUNTER → 2019-08-16 10:51 | Outpatient (CLI) | payer MEDICARE, SELFPAY ==
[2019-05-08 09:55] VITALS: BMI 23.7
--- NOTE | 2019-08-16 13:28 | PFTCOMP ---
COMPLETE PULMONARY FUNCTION TEST INTERPRETATION Brief HPI: Patient is a 79 year old female, currently under the care of Dr. Nieves, who presents to [facility] for complete pulmonary function tests secondary to diagnosis of COPD. Respiratory therapist reports good effort and reproducible results. Interpretation: Forced expiration spirometry shows a very severe large airways obstructive ventilatory defect with an FEV1 of 26% predicted. There is a significant bronchodilator response in FVC by strict ATS criteria. Spirograms are of good quality and plateau slowly, indicating slowly emptying areas of the lungs. The respiratory flow volume loop shows decreased expiratory flow rates at all lung volumes consistent with airway obstruction. Lung volumes by body plethysmography show a normal total lung capacity at 4.33 L, 100% predicted. FRC and RV are elevated out of proportion. Lung volume measurements are consistent with air-trapping. Diffusion capacity by carbon monoxide is decreased at 29% predicted. The airway resistance is elevated. No previous pulmonary function tests were available for review. Impression: Partially reversible very severe large airways obstructive ventilatory defect with symmetric reduction in diffusing capacity, resulting in air trapping, in a pattern consistent with advanced COPD.
== END ==
LOC: PR 10:52 → PSN 10:53
PROVIDERS: Referring Provider Internal Medicine Critical Care Medicine; Visit Provider Internal Medicine Critical Care Medicine
DX: J44.9 Chronic obstructive pulmonary disease, unspecified (principal)
CPT/HCPCS: 94060; 94726; 94729

== ENCOUNTER 2021-10-27 22:19 | Emergency (ER) | payer MEDICARE, SELFPAY ==
[2021-10-27 22:19] VITALS: BP 183/84; PULSE 95; RESP 24; TEMP 36.8; O2SAT 96; BMI 23.8
--- NOTE | 2021-10-27 22:38 | CT_ITS ---
We are attempting to reach an attending provider to discuss findings. An addendum with communication details will be sent when the communication is complete. STUDY: CT ABDOMEN AND PELVIS WITH CONTRAST REASON FOR EXAM: Female, 81 years old. Abdominal pain. RADIATION DOSAGE (If Supplied By Facility): CTDIvol = ( 13.89 ) mGy, DLP = ( 645.38 ) mGycm TECHNIQUE: Transaxial images were obtained from the dome of the diaphragm to the symphysis pubis without oral contrast. 100 mL Isovue 370 intravenous contrast was administered. Sagittal and coronal images were reconstructed. Individualized dose optimization techniques were used for this CT. COMPARISON: None. FINDINGS: The visualized lung bases are unremarkable. Mild cardiomegaly. Coronary artery calcifications. No pericardial effusion. Multiple subcentimeter low-attenuation lesions likely representing cysts and/or hemangiomas. There are multiple gallstones. Questionable small amount of pericholecystic fluid adjacent to the fundus of the gallbladder. Normal spleen. Normal pancreas. Normal bilateral adrenal glands. Bilateral renal cysts left larger than right the largest of which are simple. Normal visualized stomach. Normal small intestine. Diffuse sigmoid diverticulosis. Wall thickening compatible with diverticular disease. Suture line ascending colon. There is non-visualization of the appendix. There are atherosclerotic changes of the abdominal aorta, iliac and femoral vessels. Normal inferior vena cava. Normal retroperitoneum. No intra-abdominal free air. Normal urinary bladder. Uterus is not enlarged. No adnexal mass is seen. Normal abdominal wall. Compression fractures at multiple levels in the lower thoracic and lumbar spine which are probably old Including severe compression fractures T12 and L1. CT/Abdomen/Pelvis W IV Cont ONLY IMPRESSION: No acute findings in the abdomen or pelvis. No evidence of bowel obstruction. Mild cardiomegaly. Coronary artery calcifications. Small low-attenuation lesions in the liver likely representing incidental cysts or hemangiomas. Cholelithiasis. Questionable minimal pericholecystic fluid. Correlate with right upper quadrant ultrasound. Bilateral renal cysts which require no further evaluation. Diffuse sigmoid diverticulosis. Multiple old compression fractures in the thoracic and lumbar spine. An acute fracture line is not identified. Additional nonemergent findings as above. Electronically Signed: Jalen Snider MD at 0:07 EST Reading Location ID and State: [id number] / , Service support ,
--- NOTE | 2021-10-27 22:38 | EKG12_ITS ---
Test Reason : CP Blood Pressure : / mmHG Vent. Rate : 093 BPM Atrial Rate : 093 BPM P-R Int : 136 ms QRS Dur : 086 ms QT Int : 346 ms P-R-T Axes : 009 -15 048 degrees QTc Int : 430 ms Normal sinus rhythm with sinus arrhythmia Normal ECG Confirmed by MANJINDER ONEILL, RENEA ([id number]), photograph editor OMAYRA LEWIS ([id number]) on 10/28/2021 12:30:17 PM Referred By: LEEROY Confirmed By:RENEA DUNBAR MD
--- NOTE | 2021-10-27 22:39 | EDS_ITS ---
HPI History of Present Illness Chief Complaint: Chest Pain Narrative Narrative: Patient is an 81-year-old female with past medical history of COPD on chronic nasal cannula oxygen. She states that last night she noticed some pain in her upper abdomen which has been persistent through today. She states that she is distended at this area where there is pain. She denies any vomiting or constipation. She denies any recent trauma fevers or chills. She does report a previous abdominal surgery of appendectomy almost 40 years ago. She states secondary to the pain and abdominal distention she presents for evaluation [facility] Medical History (Updated 10/28/21 @ 02:[address] Rick Kate, ) Atherosclerotic heart disease of [place] coronary artery without angina pectoris CAD (coronary artery disease) Cellulitis of right leg Chronic respiratory failure with hypoxia COPD (chronic obstructive pulmonary disease) COPD with exacerbation Dyspnea Hyperlipidemia Hypertension PFO (patent foramen ovale) Sepsis due to cellulitis Tobacco abuse disorder Wound of right lower extremity Home Medications lisinopril 10 mg PO DAILY 11/11/15 [History Last Taken 05/07/19] simvastatin 20 mg PO QHS 11/11/15 [History Last Taken 05/07/19] Oxygen, Home [Home Oxygen] 3 lpm NASAL DAILY PRN 12/12/15 [History Last Taken Unknown] albuterol sulfate 2.5 mg INHALATION TID PRN 07/14/17 [History Last Taken 05/08/19] aspirin 81 mg PO QHS 07/14/17 [History Last Taken 05/07/19] amlodipine 5 mg PO DAILY 01/05/19 [History Last Taken 05/07/19] isosorbide mononitrate 30 mg tablet,extended release 24 hr 30 mg PO DAILY #90 tab 07/18/19 [History Last Taken Unknown] potassium chloride 20 mEq tablet,extended release(part/cryst) 20 meq PO DAILY #30 tab 07/18/19 [History Last Taken Unknown] metoprolol tartrate 25 mg tablet 12.5 mg PO BID #90 tab 08/30/19 [Rx Last Taken Unknown] Nebulizer #1 ea 11/04/19 [Rx Last Taken Unknown] albuterol sulfate 90 mcg/actuation aerosol inhaler 2 inh INHALATION Q4H PRN #18 g 10/08/20 [Rx Last Taken Unknown] fluticasone propionate 50 mcg/actuation nasal spray,suspension 2 spray INTRANASAL BID #15.8 ml 10/08/20 [Rx Last Taken Unknown] ipratropium 0.5 mg-albuterol 3 mg (2.5 mg base)/3 mL nebulization soln 3 ml INHALATION Q6H PRN #180 ml 10/08/20 [Rx Last Taken Unknown] tiotropium bromide 2.5 mcg/actuation mist for inhalation 2 puff INHALATION QDAY #4 g 10/08/20 [Rx Last Taken Unknown] budesonide-formoterol HFA 160 mcg-4.5 mcg/actuation aerosol inhaler 2 puff INHALATION BID #1 ea 07/05/21 [Rx Last Taken Unknown] ascorbate calcium (vitamin C) 500 mg PO DAILY 10/27/21 [History Last Taken Unknown] methylprednisolone 4 mg PO DAILY 10/27/21 [History Last Taken Unknown] nitroglycerin [Nitrostat] 0.4 mg SUBLINGUAL Q5M PRN 10/27/21 [History Last Taken Unknown] azelastine 2 spray INTRANASAL BID #30 ml 10/28/21 [Rx Last Taken Unknown] hydrocodone-acetaminophen 1 tab PO Q6H PRN 3 Days #12 tab 10/28/21 [Rx Last Taken Unknown] Allergy/AdvReac Type Severity Reaction Status Date / Time No Known Allergies Allergy Verified 10/27/21 22:39 Family History Mother CAD (coronary artery disease) Father CAD (coronary artery disease) Sister CAD (coronary artery disease) Surgical History Post PTCA Presence of coronary angioplasty implant and graft Social History (Updated 10/08/20 @ 14:[address] Lloyd Nieves, DO) Smoking Status: Former smoker ROS ROS ED Constitutional Constitutional ED: Denies chills or fever(s) ENT ENT ED: Denies sore throat Cardiovascular Cardiovascular: Denies chest pain Respiratory/Chest Respiratory/Chest: Denies cough or dyspnea Gastrointestinal Gastrointestinal: Reports abdominal pain; Denies constipation, diarrhea, nausea or vomiting Genitourinary Genitourinary ED: Denies dysuria Musculoskeletal Musculoskeletal: Denies myalgias Integumentary Denies rash Neurologic Neurologic: Denies headache(s) Hematologic/Lymphatic Hematologic/Lymphatic: Denies easy bleeding or easy bruising EXAM Physical Exam Const Vital Signs: 10/27/21 22:19 10/28/21 01:34 10/28/21 02:10 Temperature 98.2 F Temperature Source Temporal Pulse Rate 95 94 91 Respiratory Rate 24 H 20 H 16 Blood Pressure 183/84 H 148/73 H 141/87 H Blood Pressure Mean 117 98 105 Pulse Ox 96 97 94 Oxygen Delivery Method Nasal Cannula Room Air Room Air Oxygen Flow Rate (L/min) 2 10/28/21 02:22 Temperature Temperature Source Pulse Rate 92 Respiratory Rate 23 H Blood Pressure Blood Pressure Mean Pulse Ox Oxygen Delivery Method Oxygen Flow Rate (L/min) Positive well nourished and well developed General Appearance ED: well developed HEENT Reports dry mucous membranes Mouth ED: Yes dry mucous membranes Mouth: dry mucous membranes Eyes PERRL and EOMs intact bilaterally Neck supple and no JVD Resp normal respiratory effort Resp Narrative: Breath sounds are diminished throughout with faint expiratory wheezes diffusely but no signs of respiratory distress Cardio regular rate and regular rhythm Rate: other Other Details: Radial pulses are plus 2 out of 4 bilaterally are equal and symmetric GI GI Narrative: Abdomen is soft with normal active bowel sounds. Patient does have a reducible hernia noted in the umbilical/mid lower abdomen that she states has been there for multiple years. However she is distended in the upper abdominal region with increased tympany and pain with palpation at the site. No voluntary guarding or rigidity no pulsatile mass. Auscultation: normoactive bowel sounds Palpation: soft Extremity normal to inspection Extremity Narrative: No asymmetric edema no pitting edema negative Homans' sign bilaterally Neuro oriented x3 and CN's II-XII intact bilaterally Sensorium / Orientation: alert Motor Exam: strength 5/5 throughout Psych mental status grossly normal Skin no rashes or lesions noted MDM MDM MDM Narrative Medical decision making narrative: Patient presented to the hospital mainly complaining of upper abdominal pain and distention. On exam she does have distention with increased tympany in the upper abdomen and there is reducible hernia noted. I have concern that she is developing a ileus versus small bowel obstruction based on this exam and therefore I elected to perform a basic abdominal work-up with CT scan of the abdomen and pelvis. Troponin and EKG were added as patient did complain of some radiation into her chest. The patient's initial and delta troponin were normal and EKG was sinus rhythm. CT scan questioned acute cholecystitis so therefore a ultrasound was obtained. Ultrasound showed gallstones without inflammatory changes. The patient's pancreas on CT and ultrasound were also normal. Her lipase is slightly elevated at 474 and we discussed this could be from possible stone in the gallbladder moving into the duct. However the patient is not jaundiced and is not requiring pain medication. Therefore this time I do not feel there is need for admission and she can follow-up with general surgery on outpatient basis to discuss need for possible further testing and/or surgical intervention based on her gallstones. However at this time as work-up reveals no acute cardiac abnormality and no signs of obstruction or incarcerated hernia I do feel it is safe for patient to be discharged and she knows to return if symptoms worsen or she has any further concerns Lab Data Attestation: I reviewed the patient's lab results. Labs: Laboratory Results - last 24 hr 10/27/21 10/27/21 10/27/21 22:30 22:30 22:40 WBC 13.9 H RBC 3.95 L Hgb 11.2 L Hct 36.1 L MCV 91.4 MCH 28.4 MCHC 31.0 L RDW Std Deviation 43.0 RDW Coeff of Lucy 13.0 Plt Count 298 MPV 8.9 Immature Gran % (Auto) 0.600 Neut % (Auto) 70.7 H Lymph % (Auto) 19.1 Banks % (Auto) 9.3 Eos % (Auto) 0.2 Baso % (Auto) 0.1 Absolute Neuts (auto) 9.8 H Absolute Lymphs (auto) 2.65 Nucleated RBC % 0 Sodium 140 Potassium 3.8 Chloride 103 Carbon Dioxide 33.0 H Anion Gap 4 L BUN 18 Creatinine 1.01 Estim Creat Clear Calc 34.55 Est GFR (MDRD) Af Amer 68 Est GFR (MDRD) Non-Af 56 L BUN/Creatinine Ratio 17.8 Glucose 133 H Lactic Acid 1.1 Calcium 9.9 Total Bilirubin 0.60 Direct Bilirubin 0.13 AST 13 L ALT 17 Alkaline Phosphatase 88 Troponin I High Sens 10 Total Protein 6.9 Albumin 3.7 Globulin 3.2 Lipase 474 H 10/28/21 01:34 WBC RBC Hgb Hct MCV MCH MCHC RDW Std Deviation RDW Coeff of Lucy Plt Count MPV Immature Gran % (Auto) Neut % (Auto) Lymph % (Auto) Banks % (Auto) Eos % (Auto) Baso % (Auto) Absolute Neuts (auto) Absolute Lymphs (auto) Nucleated RBC % Sodium Potassium Chloride Carbon Dioxide Anion Gap BUN Creatinine Estim Creat Clear Calc Est GFR (MDRD) Af Amer Est GFR (MDRD) Non-Af BUN/Creatinine Ratio Glucose Lactic Acid Calcium Total Bilirubin Direct Bilirubin AST ALT Alkaline Phosphatase Troponin I High Sens 12 Total Protein Albumin Globulin Lipase Radiography Diagnostic Testing: Clinical Impression(s) from Imaging Studies Abdomen/Pelvis CT 10/27/21 22:38 IMPRESSION: No acute findings in the abdomen or pelvis. No evidence of bowel obstruction. Mild cardiomegaly. Coronary artery calcifications. Small low-attenuation lesions in the liver likely representing incidental cysts or hemangiomas. Cholelithiasis. Questionable minimal pericholecystic fluid. Correlate with right upper quadrant ultrasound. Bilateral renal cysts which require no further evaluation. Diffuse sigmoid diverticulosis. Multiple old compression fractures in the thoracic and lumbar spine. An acute fracture line is not identified. Additional nonemergent findings as above. Electronically Signed: Jalen Snider MD at 0:07 EST Reading Location ID and State: [place] / , Service support , ADDENDUM: 10/28/21 0017 IMPRESSION: No acute findings in the abdomen or pelvis. No evidence of bowel obstruction. Mild cardiomegaly. Coronary artery calcifications. Small low-attenuation lesions in the liver likely representing incidental cysts or hemangiomas. Cholelithiasis. Questionable minimal pericholecystic fluid. Correlate with right upper quadrant ultrasound. Bilateral renal cysts which require no further evaluation. Diffuse sigmoid diverticulosis. Multiple old compression fractures in the thoracic and lumbar spine. An acute fracture line is not identified. Additional nonemergent findings as above. N.B. : The above Results were Read Back by Jalen Snider MD to Dr. Humble MD, and understanding confirmed on 10/28/2021 00:10:53 (ET). Electronically Signed: Jalen Snider MD at 0:07 EST Reading Location ID and State: [place] / , Service support , Gallbladder Ultrasound 10/28/21 00:11 IMPRESSION: Cholelithiasis without evidence of acute cholecystitis. Small hepatic cysts noted on the recent CT scan. These require no further evaluation. Electronically Signed: Jalen Snider MD at 1:54 EST Reading Location ID and State: [id number] / , Service support , Discharge Plan Triage Chief Complaint: Chest Pain ED Provider: Rick Kate Dx/Rx/DC Orders Clinical Impression: Cholelithiasis Instructions: What Are Gallstones, Treating Gallstones Prescriptions: New hydrocodone-acetaminophen 5-325 mg tablet 1 tab PO Q6H PRN (Reason: pain) 3 Days Qty: 12 RF: 0 azelastine 137 mcg (0.1 %) aerosol,spray 2 spray intranasal BID Qty: 30 RF: 2 No Action isosorbide mononitrate 30 mg tablet extended release 24 hr 30 mg PO DAILY Qty: 90 RF: 0 potassium chloride 20 mEq tablet,ER particles/crystals 20 meq PO DAILY Qty: 30 RF: 0 albuterol sulfate 90 mcg/actuation HFA aerosol inhaler 2 inh INHALATION Q4H PRN (Reason: shortness of breath or wheezing) Qty: 18 RF: 6 ipratropium-albuterol 0.5 mg-3 mg(2.5 mg base)/3 mL solution for nebulization 3 ml INHALATION Q6H PRN (Reason: shortness of breath or wheezing) Qty: 180 RF: 3 fluticasone propionate [Flonase Allergy Relief] 50 mcg/actuation spray,suspension 2 spray INTRANASAL BID Qty: 15.8 RF: 6 Spiriva Respimat 2.5 mcg/actuation mist 2 puff inhalation QDAY Qty: 4 RF: 6 simvastatin 20 MG tablet 20 mg PO QHS RF: 0 lisinopril 10 MG tablet 10 mg PO DAILY RF: 0 Oxygen, Home [Home Oxygen] 3 lpm NASAL DAILY PRN (Reason: Sob &/Or Wheezing) RF: 0 aspirin 81 MG tablet,chewable 81 mg PO QHS RF: 0 albuterol sulfate 2.5 MG/3 ML solution for nebulization 2.5 mg inhalation TID PRN (Reason: Sob &/Or Wheezing) RF: 0 amlodipine 5 MG tablet 5 mg PO DAILY RF: 0 methylprednisolone 4 mg Tablet 4 mg PO DAILY RF: 0 nitroglycerin [Nitrostat] 0.4 mg Tablet, Sublingual 0.4 mg SUBLINGUAL Q5M PRN (Reason: Chest Pain) RF: 0 ascorbate calcium (vitamin C) 500 mg Capsule 500 mg PO DAILY RF: 0 metoprolol tartrate 25 mg tablet 12.5 mg PO BID Qty: 90 RF: 3 (DME) Nebulizer Qty: 1 RF: 0 budesonide-formoterol 160-4.5 mcg/actuation HFA aerosol inhaler 2 puff inhalation BID Qty: 1 RF: 3 Primary Care Provider: Care Physician,No Primary Referrals: Sj Stewart MD [STAFF PHYSICIAN] - 5-7 Days Care Physician,No Primary [Primary Care Provider] - Activity Restrictions/Additional Instructions: Please follow-up with general surgery because of the gallstones found on today's visit and return to the ER should you have any further concerns Disposition Disposition: Home, Self Care
[2021-10-27 22:50] LABS: Absolute Lymphocyte Count 2.65 X10^3/uL (0.83-4.51); Absolute Neutrophil Count 9.8 X10^3/uL (2.0-7.7); Basophil# 0.02 X10^3/uL; Basophil% 0.1 % (0-1); Eosinophil# 0.03 X10^3/uL; Eosinophils% 0.2 % (0-5); Hematocrit 36.1 % (37-47); Hemoglobin 11.2 g/dL (12.0-15.0); Lymphocyte # 2.65 X10^3/ul (0.83-4.51); Lymphocyte % 19.1 % (19-41); Mean Corpuscular Hgb 28.4 pg (27.0-32.0); Mean Corpuscular Volume 91.4 fL (81-99); Mean Platelet Vol. 8.9 fl (6.2-12.0); Monocyte% 9.3 % (0-10); NRBC Flagged by Analyzer 0 % (0-5); Neutrophil # 9.82 X10^3/uL (2.7-7.7); Neutrophil % 70.7 % (47-70); Platelet Count 298 K/mm3 (150-450); Red Blood Count 3.95 M/mm3 (4.2-5.4); White Blood Count 13.9 K/mm3 (4.4-11.0)
[2021-10-27 23:02] LABS: AST(SGOT) 13 U/L (15-37); Alanine Aminotransfer ALT/SGPT 17 U/L (13-56); Albumin, Serum 3.7 g/dL (3.2-5.0); Alkaline Phosphatase 88 U/L (45-117); Anion Gap 4 (5-15); BUN 18 mg/dL (7-18); BUN/Creat Ratio 17.8 RATIO (10-20); Bilirubin, Direct 0.13 mg/dL (0.00-0.30); Calcium,Total 9.9 mg/dL (8.5-10.1); Chloride 103 mmol/L (98-107); Creatinine, Serum 1.01 mg/dL (0.55-1.02); EST Glomerular Filtration Rate 56 mL/min (>60); Est Glom Filt Rate - Afr Amer 68 mL/min (>60); Estimated Creatinine Clearance 34.55 ml/min; Globulin 3.2 g/dL (2.2-4.2); Glucose 133 mg/dL (74-106); Lipase 474 U/L (73-393); Potassium 3.8 mmol/L (3.5-5.1); Protein, Total 6.9 g/dL (6.4-8.2); Sodium Level 140 mmol/L (136-145); Troponin-I HS 10 pg/mL (3.0-54.0)
[2021-10-27 23:40] LABS: Lactic Acid 1.1 mmol/L (0.4-1.9)
--- NOTE | 2021-10-28 00:11 | US_ITS ---
STUDY: ABDOMINAL ULTRASOUND - RIGHT UPPER QUADRANT REASON FOR VISIT: Female, 81 years old with right upper quadrant pain, possible pericholecystic fluid on CT. TECHNIQUE: Ultrasound evaluation of the right upper quadrant was performed with real-time and static pineda-scale imaging. TECHNICAL QUALITY: Adequate. COMPARISON: CT abdomen and pelvis October 27, 2021. FINDINGS: Liver: The liver measures 14.3 cm. There is normal echogenicity of the liver. The bile ducts are within normal limits. There is hepatic color flow. The direction of portal flow is hepatopetal. Multiple hepatic cysts with the largest measuring 1.0 x 0.7 x 0.6 cm. Gallbladder: There is a contracted gallbladder. The gallbladder wall measures 3 mm. There is a negative sonographic Gallego''s sign. There is no pericholecystic fluid. There are multiple echogenic structures within the gallbladder, consistent with multiple gallstones. Common Bile Duct (C.B.D.): The common bile duct measures 3 mm. Pancreas: Normal size of the head, body and tail of the pancreas. There is normal echogenicity of the pancreas. There is no demonstrated pancreatic mass or cyst. Right Kidney: Normal size of the right kidney. The right kidney measures 11.4 cm. Normal renal cortex. The right cortex measures 1.2 cm. There is no demonstrated renal mass or cyst. There is no right hydronephrosis. US/Gallbladder IMPRESSION: Cholelithiasis without evidence of acute cholecystitis. Small hepatic cysts noted on the recent CT scan. These require no further evaluation. Electronically Signed: Jalen Snider MD at 1:54 EST Reading Location ID and State: [id number] / , Service support ,
[2021-10-28 01:34] VITALS: BP 148/73; PULSE 94; RESP 20; O2SAT 97
[2021-10-28 02:02] LABS: Troponin-I HS 12 pg/mL (3.0-54.0)
[2021-10-28 02:10] VITALS: BP 141/87; PULSE 91; RESP 16; O2SAT 94
[2021-10-28] MEDS: Albuterol 2.5 MG/3 ML VIAL.NEB. INHALATION (02:21)
[2021-10-28 02:22] VITALS: PULSE 92; RESP 23
[2021-10-28 03:35] VITALS: BP 136/73; O2SAT 98
== END 2021-10-28 03:36 | disposition home or self-care (01) ==
PROVIDERS: Emergency Provider Emergency Medicine; Visit Provider Emergency Medicine
DX: K80.20 Calculus of gallbladder without cholecystitis without obstruction (principal); J44.9 Chronic obstructive pulmonary disease, unspecified; I10 Essential (primary) hypertension; Z87.891 Personal history of nicotine dependence; E78.5 Hyperlipidemia, unspecified; I25.10 Atherosclerotic heart disease of native coronary artery without angina pectoris; Q21.1 Atrial septal defect; Z99.81 Dependence on supplemental oxygen; Z79.899 Other long term (current) drug therapy; Z79.82 Long term (current) use of aspirin
CPT/HCPCS: 74177; 76705; 80048; 80076; 83605; 83690; 84484; 85025; 93005; 94640; 96365; 99284; J7040; Q9967; A4216